=== PATIENT | female | born 1995 | race Caucasian/White ===

== ENCOUNTER 2017-03-16 00:36 | Emergency (ER) | payer OTHER ==
[~2017-03-16] VITALS: Ht 172.7 cm; Wt 58.3 kg
[2017-03-16 00:50] VITALS: TEMP 36.7; Ht 172.7 cm; Wt 58.3 kg
[2017-03-16] MEDS ORDERED: NAPROXEN 250 MG TAB PO STA (00:58)
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
[2017-03-16 02:08] VITALS: BP 111/66; PULSE 59; O2SAT 98
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
[2017-05-16] MEDS ORDERED: ULT50X PO ×2 (12:29→17:15)
[2017-05-16] MEDS ORDERED: OXYC7.5T62 PO ×2 (16:23→17:15)
[2017-05-16] MEDS ORDERED: LDDP5 TD ×2 (16:23→17:15)
== END 2017-03-16 02:13 | disposition home or self-care (01) ==
LOC: C.EDB 00:37 → C.EDA 02:13
DX: S09.90XA Unspecified injury of head, initial encounter (principal); S00.83XA Contusion of other part of head, initial encounter; S89.92XA Unspecified injury of left lower leg, initial encounter; X58.XXXA Exposure to other specified factors, initial encounter; Y93.72 Activity, wrestling; I73.00 Raynaud's syndrome without gangrene; F17.200 Nicotine dependence, unspecified, uncomplicated; Z88.0 Allergy status to penicillin; Z88.1 Allergy status to other antibiotic agents; Z88.2 Allergy status to sulfonamides; Z88.8 Allergy status to other drugs, medicaments and biological substances; Z80.41 Family history of malignant neoplasm of ovary

== ENCOUNTER 2017-04-27 15:56 | Emergency (ER) | payer OTHER ==
[~2017-04-27] VITALS: Ht 172.7 cm; Wt 58.8 kg
[2017-04-27 16:05] VITALS: TEMP 36.7; Ht 172.7 cm; Wt 58.8 kg
[2017-04-27] MEDS ORDERED: SODIUM CHLORIDE 0.9% 500ML 500 ML IV STA (16:47)
[2017-04-27 17:00] LABS: BASO % 0.4 %; BASO ABS # 0.04 K/uL (0-0.2); COMPLETE YES; EOS % 1.6 %; HEMATOCRIT 43.8 % (37-47); IG% 0.2 %; LYMPH % 17.2 %; MEAN CELL VOLUME 94.2 fL (80-100); MEAN CORPUSCULAR HEMOGLOBIN 32.3 pg (25-34); MEAN CORPUSCULAR HGB CONC 34.2 g/dl (32-36); MEAN PLATELET VOLUME 10.6 fL (7.4-10.4); MONO % 8.3 %; NEUT % 72.3 %; PLATELET COUNT 236 K/uL (130-400); RED BLOOD COUNT 4.65 M/uL (4.2-5.4); WHITE BLOOD COUNT 9.89 K/uL (4.8-10.8)
[2017-04-27 17:08] LABS: URINE APPEARANCE TURBID (CLEAR); URINE BILIRUBIN NEG (NEG); URINE COLOR YELLOW; URINE EPITHELIAL CELL AUTO >30 /lpf (0-5); URINE NITRITE NEG (NEG); URINE PH 7.5 (4.5-7.5); URINE SPECIFIC GRAVITY 1.024 (1.000-1.030); UROBILINOGEN NEG (NEG)
[2017-04-27 17:10] LABS: MANUAL MICROSCOPIC REQUIRED? NO; REVIEW REQ? NO
[2017-04-27] MEDS ORDERED: ONDANSETRON 8 MG/54 ML D5W IV STA (17:23)
[2017-04-27 17:24] LABS: ALT/SGPT 14 U/L (12-78); BLOOD UREA NITROGEN 11 mg/dl (7-18); BUN/CREATININE RATIO 13.5 (10-20); CALCIUM 8.9 mg/dl (8.5-10.1); CARBON DIOXIDE 25 mmol/L (21-32); CHLORIDE 106 mmol/L (98-107); CREATININE 0.79 mg/dl (0.60-1.20); GLUCOSE 80 mg/dl (70-99); POTASSIUM 3.5 mmol/L (3.5-5.1); SODIUM 141 mmol/L (136-145)
[2017-04-27 17:27] LABS: ALKALINE PHOSPHATASE 55 U/L (45-117); AST/SGOT 9 U/L (15-37)
[2017-04-27] MEDS ORDERED: KETOROLAC TROMETHAMINE 30 MG/ML VIAL IV STA (18:32)
--- NOTE | 2017-04-27 19:35 | DIAGNOSTIC IMAGING REPORT ---
ULTRASOUND OF THE PELVIS CLINICAL HISTORY: Right pelvic pain. COMPARISON STUDY: Pelvic ultrasound dated 06/08/2016. Pelvic CT dated 06/09/2016. TECHNIQUE: Real-time, grayscale, and color flow sonography of the pelvis is performed transabdominally. Images are reviewed in the transverse and longitudinal planes. The patient declined the endovaginal examination. FINDINGS: Uterus: The uterus is normal in size and echotexture, measuring 8.2 x 2.9 x 4.8 cm. Endometrium: The endometrium is normal in appearance, and the endometrial stripe is top normal in thickness measuring up to 1.2 cm. Ovaries: The ovaries are normal in size and morphology. The right ovary measures 2.2 x 2.1 x 1.9 cm and the left ovary measures 3.3 x 1.7 x 2.0 cm. Small follicles are noted bilaterally. Normal Doppler waveforms are shown within both ovaries. Pelvis: There is trace free fluid in the cul-de-sac. No concerning adnexal lesion is seen. IMPRESSION: 1. No acute sonographic abnormality is identified in the pelvis. 2. There is trace and likely physiologic free fluid in the cul-de-sac. Electronically signed by: Rakan Felipe M.D. 04/27/2017 7:34 PM Dictated Date/Time: 04/27/2017 7:32 PM
[2017-04-27] MEDS ORDERED: MoRPHine SULFATE 4 MG/ML 1 ML CARP\\VIAL IV STA ×2 (20:00→22:14)
--- NOTE | 2017-04-27 20:24 | EMERGENCY ROOM VISIT NOTE ---
ED Visit Note First contact with patient: 16:35 CHIEF COMPLAINT: Lower abdominal pain, pelvic pain HISTORY OF PRESENT ILLNESS: This 21-year-old female patient presents to the emergency department with her boyfriend, complaining of one-week long history of right-sided lower abdominal and pelvic pain. Patient states pain is located "where I would get period cramps." She notes feeling as if she needs to have a bowel movement. Patient states pain has been sharp and intermittent, lasting approximately 20 minutes. She states today, the pain became more constant in nature, not unbearable, however much more frequently than previously. Patient has been moving her bowels normally. Last bowel movement was this morning, approximately 9:15. Patient states his bowel movement was normal, soft, and she denies blood in the stool. She does report a small amount of blood from her vagina on the toilet paper when she wiped, but states her last period was last week. Patient states she did vomit this morning due to pain. She states vomiting was not associated with nausea prior. Patient denies fever, nausea, diarrhea, constipation, any upper abdominal pain, change in appetite. Until today, patient has been taking ibuprofen regularly for the discomfort. This did not help, so has not taken any medications today. Patient is sexually active with one partner, but denies the likelihood that she is . She is not taking control. Patient does report history of right ovarian cyst , diagnosed approximately 2 months ago in the emergency department in [place]. REVIEW OF SYSTEMS: A 10-system review of systems was performed with positives and pertinent negatives listed in the history of present illness. All other systems were reviewed and are negative. ALLERGIES: Amoxicillin, prednisone, Augmentin, ciprofloxacin, penicillin MEDICATIONS: None PMH: Ovarian cyst SOCIAL HISTORY: Patient lives locally with her father. Patient is a current smoker. She denies alcohol or drug use. PHYSICAL EXAM: VITALS: Vitals are noted on the nurse's note and reviewed by myself. Vital signs stable. GENERAL: 21-year-old female, in no acute distress, nondiaphoretic, well- developed well-nourished. HEAD - NC/AT. EYES - PERRL with EOMI bilaterally. Sclera anicteric. Palpebral conjunctiva pink and moist with no injection noted. EARS - No deformities of external structures noted on gross examination bilaterally. No pain elicited with palpation of the tragus bilaterally. External auditory canals without discharge or otorrhea. Tympanic membranes pearly fink without retraction or bulging. No fluid or purulent material visualized behind the TM. Handle of malleus, umbo, cone of light, pars tensa/ flaccid all easily visualized. NOSE - Midline and without cyanosis. No epistaxis or purulent drainage noted. Septum midline without deviation or septal hematoma noted. MOUTH/OROPHARYNX - Without perioral cyanosis. Buccal mucosa pink and moist and without leukoplakia. Tongue midline with equal elevation of palate bilaterally. No tonsillar hypertrophy, erythema, or exudates noted. Good dentition noted. NECK - Neck with FROM. Supple to palpation. No nuchal rigidity. LUNGS - Chest wall symmetric without accessory muscle use, intercostals retractions, or central cyanosis. Normal vesicular breath sounds CTA B/L. No wheezes, rales, or rhonchi appreciated. CARDIAC - RRR with S1/S2. No murmur, rubs, or gallops appreciated. ABDOMEN - Abdominal contour normal without pulsations or visible masses. Negative [place]'s or Gore Sims's Signs. BS are normoactive all four quadrants. tenderness to palpation appreciated in the right lower quadrant. No guarding. Positive Rebound Tenderness. Positive Rovsing's. Negative Benites 's. No palpable masses, hepatosplenomegaly, or ascites noted. EXTREMITIES - No clubbing or peripheral cyanosis. No pretibial edema present. +3/5 radial and dorsalis pedis pulses palpated throughout. +5/5 strength noted in UE/LE bilaterally. NEUROLOGIC - Cranial nerves II through XII grossly intact. Sensory intact to light touch throughout. PSYCH - A&Ox3 and cooperates fully with examiner. Pt is very pleasant and interacts well with examiner. RADIOLOGY: Pelvic/Transvaginal Ultrasound FINDINGS: Uterus: The uterus is normal in size and echotexture, measuring 8.2 x 2.9 x 4.8 cm. Endometrium: The endometrium is normal in appearance, and the endometrial stripe is top normal in thickness measuring up to 1.2 cm. Ovaries: The ovaries are normal in size and morphology. The right ovary measures 2.2 x 2.1 x 1.9 cm and the left ovary measures 3.3 x 1.7 x 2.0 cm. Small follicles are noted bilaterally. Normal Doppler waveforms are shown within both ovaries. Pelvis: There is trace free fluid in the cul-de-sac. No concerning adnexal lesion is seen. IMPRESSION: 1. No acute sonographic abnormality is identified in the pelvis. 2. There is trace and likely physiologic free fluid in the cul-de-sac. CT Abdomen/Pelvis with IV and Oral Contrast, read by radiology: FINDINGS: Lung bases: The heart is normal in size and without pericardial effusion. The lung bases are clear. Liver: The contrast-enhanced liver is normal in size, contour, and attenuation. There is no intrahepatic biliary ductal dilatation. The hepatic veins and portal veins are patent. Hepatic periportal edema is noted and likely related to hydration status. Gallbladder: There is unchanged abnormal appearance of the gallbladder. The gallbladder is not distended. Gallbladder wall thickening is noted and there are numerous small calcifications identified either within or adjacent to the gallbladder wall. No surrounding inflammatory stranding is seen. Spleen: Normal in size and attenuation. Pancreas: Unremarkable. Adrenal glands: Unremarkable. Kidneys: The contrast enhanced kidneys are normal in size and without hydronephrosis. The kidneys enhance symmetrically. There is a nonobstructing left renal calculus. Abdominal vasculature: The abdominal aorta is normal in course and caliber. Bowel: The small bowel and colon are normal in course and caliber. Mild to moderate colonic fecal retention is observed. The appendix is well-visualized and normal. Peritoneum: There is no intraperitoneal free air or abdominal ascites. There is a small fat-containing umbilical hernia. Lymphadenopathy: None. Pelvic viscera: The bladder, uterus, and adnexa are normal as visualized. There are bilateral ovarian follicles. Pelvic phleboliths are similar to previous. Skeletal structures: No lytic or blastic lesions are seen. Discussed findings of labs, ultrasound, CT scan with Dr. Matias. Dr. Matias agrees with discharge with outpatient follow-up at this time. I discussed with the patient her abnormal gallbladder findings on CT scan, and recommended she follow up with her primary care provider within one week regarding further evaluation and workup. Patient was discharged home in good condition. IMPRESSION: 1. The appendix is well-visualized and normal. 2. There is unchanged abnormal appearance of the gallbladder as compared to 06/09/2016. There is gallbladder wall thickening with numerous small round calcifications either within the gallbladder wall or adjacent to the gallbladder. These are extraluminal, and differential considerations include (but are not limited to) chronic cholecystitis, an atypical presentation of adenomyomatosis, or possibly the sequelae of previous granulomatous disease. There is no significant surrounding inflammatory change. Clinical and laboratory correlation will be required. 3. Small nonobstructing left renal calculus. EMERGENCY DEPARTMENT COURSE: Pt. was seen and evaluated as above. Initial lab work ordered and performed. Negative urinalysis, negative urine test, normal CBC with no leukocytosis noted, normal renal function, liver function, lipase normal at 138. Due to patient's previous recent ovarian cyst, initial pelvic ultrasound was ordered for evaluation. Results interpreted by radiologist and as previously documented. No current ovarian cyst, however radiology did note free fluid in the right lower pelvis. Patient request for medication for nausea. She was given 8 mg Zofran IV at this time with improvement in symptoms. Later, patient requested pain medication. Provided patient with 30 mg Toradol IV with only minimal improvement in abdominal pain. Provided patient with morphine 4 mg at this time. Pt. does report improvement in pain. After 2 hours, and just prior to CT scan, patient requested more pain medication , as she felt the morphine was wearing off. Pt. given 4mg morphine again with significant improvement in symptoms. Due to negative pelvic ultrasound, and ongoing abdominal discomfort, CT scan ordered and performed to r/o appendicitis or other cause of abdominal pain. CT scan performed with results as previously documented. Reviewed pt's previous history and records with Dr. Matias. Noted extremely similar circumstances last June,. I discussed this with the patient and asked if she has followed up outpatient for her symptoms. She states she has not. I discussed normal results of work-up with patient and recommended discharge at this time with nausea medication. Pt. agrees with this plan, so I encouraged her to follow-up outpatient. I suspect discomfort could be coming from ruptured ovarian cyst, however, difficult to tell based on symptoms and work-up performed. Pt. discharged home in good condition. DIAGNOSIS: Right lower quadrant pain, gallbladder wall thickening with calcifications. DIFFERENTIAL DIAGNOSIS: Ovarian cyst, ovarian torsion, appendicitis, bowel obstruction, acute cholecystitis, acute pancreatitis, acute gastroenteritis, PID , , malignancy, urinary tract infection, and others. DISCHARGE INSTRUCTIONS & TREATMENT: You have been treated in the Emergency Department your Abdominal Pain. Laboratory results and imaging studies have ruled out any emergent causes for your abdominal pain which would warrant admission or surgery. I suspect the pain may have been caused by a ruptured ovarian cyst. If you continue to experience discomfort in her pelvis, you should consider follow-up with a trophy assembler. You have been given morphine in the emergency department for your pain. It is illegal for you to drive while taking this medication. You have been prescribed Zofran to be used for any nausea or vomiting. Take as prescribed. For pain control, you can use the following [id number] medicines (if >12 yo): - Regular strength (325mg/tab) Tylenol (acetaminophen) 2 tabs every 4-6 hours as needed. Do not exceed 12 tablets in a 24 hour period. Avoid taking more than 4 grams (4000 mg) of Tylenol per day. This includes any other sources of acetaminophen you may take on a regular basis. - Regular strength (200 mg/tab) Advil (ibuprofen) 1-2 tabs every 4-6 hours as needed. Do not exceed a dose of 3200 mg per day. Drink plenty of water and stay well hydrated. As with any trip to the Emergency Department, you should follow-up with your Primary Care Provider from today's visit in 1-3 days. Noted gallbladder wall thickening and multiple small round calcifications within or adjacent to the bladder. These findings are unchanged from your previous CT scan completed June 2016. Consider follow-up with general surgery or GI regarding abnormalities noted in Gallbladder on CT scan. Return to the emergency department if your symptoms persist despite treatment plan outlined above or if the following symptoms occur: increased fevers, chills , worsening nausea/vomiting, blood in your stool or urine. Current/Historical Medications Scheduled Ondansetron Odt (Zofran Odt), 8 MG SL Q6H Allergies Coded Allergies: Prednisone (Verified Allergy, Severe, HIVES, 04/27/17) Amoxicillin (Verified Allergy, Intermediate, hives, 04/27/17) Penicillins (Verified Allergy, Intermediate, HIVES, 04/27/17) Ciprofloxacin (Verified Allergy, Unknown, unsure had a reaction as an infant, 04/27/17) Clavulanic Acid (Verified Allergy, Unknown, Hives/Rash, 04/27/17) Vital Signs Date Time Temp Pulse Resp B/P (MAP) Pulse Ox O2 Delivery O2 Flow Rate FiO2 04/27/17 23:38 58 18 107/58 97 04/27/17 22:29 61 18 92/59 95 Room Air 04/27/17 20:50 60 18 103/62 98 Room Air 04/27/17 18:42 72 18 99/58 99 Room Air 04/27/17 16:05 36.7 97 18 125/85 98 Room Air Laboratory Results 04/27/17 16:30 Red Blood Count 4.65, Mean Corpuscular Volume 94.2, Mean Corpuscular Hemoglobin 32.3, Mean Corpuscular Hemoglobin Concent 34.2, Mean Platelet Volume 10.6, Neutrophils (%) (Auto) 72.3, Lymphocytes (%) (Auto) 17.2, Monocytes (%) (Auto) 8.3, Eosinophils (%) (Auto) 1.6, Basophils (%) (Auto) 0.4, Neutrophils # (Auto) 7.15, Lymphocytes # (Auto) 1.70, Monocytes # (Auto) 0.82, Eosinophils # (Auto) 0.16, Basophils # (Auto) 0.04 04/27/17 16:30 Test 04/27/17 16:15 04/27/17 16:30 Urine Color YELLOW Urine Appearance TURBID (CLEAR) Urine pH 7.5 (4.5-7.5) Urine Specific [place] 1.024 (1.000-1.030) Urine Protein NEG (NEG) Urine Glucose (UA) NEG (NEG) Urine Ketones NEG (NEG) Urine Occult Blood NEG (NEG) Urine Nitrite NEG (NEG) Urine Bilirubin NEG (NEG) Urine Urobilinogen NEG (NEG) Urine Leukocyte Esterase NEG (NEG) Urine WBC (Auto) 1-5 /hpf (0-5) Urine RBC (Auto) 5-10 /hpf (0-4) Urine Hyaline Casts (Auto) 1-5 /lpf (0-5) Urine Epithelial Cells (Auto) >30 /lpf (0-5) Urine Bacteria (Auto) 1+ (NEG) Urine Test NEG (NEG) White Blood Count 9.89 K/uL (4.8-10.8) Red Blood Count 4.65 M/uL (4.2-5.4) Hemoglobin 15.0 g/dL (12.0-16.0) Hematocrit 43.8 % (37-47) Mean Corpuscular Volume 94.2 fL (80-100) Mean Corpuscular Hemoglobin 32.3 pg (25-34) Mean Corpuscular Hemoglobin Concent 34.2 g/dl (32-36) Platelet Count 236 K/uL (130-400) Mean Platelet Volume 10.6 fL (7.4-10.4) Neutrophils (%) (Auto) 72.3 % Lymphocytes (%) (Auto) 17.2 % Monocytes (%) (Auto) 8.3 % Eosinophils (%) (Auto) 1.6 % Basophils (%) (Auto) 0.4 % Neutrophils # (Auto) 7.15 K/uL (1.4-6.5) Lymphocytes # (Auto) 1.70 K/uL (1.2-3.4) Monocytes # (Auto) 0.82 K/uL (0.11-0.59) Eosinophils # (Auto) 0.16 K/uL (0-0.5) Basophils # (Auto) 0.04 K/uL (0-0.2) RDW Standard Deviation 44.6 fL (36.4-46.3) RDW Coefficient of Variation 13.1 % (11.5-14.5) Immature Granulocyte % (Auto) 0.2 % Immature Granulocyte # (Auto) 0.02 K/uL (0.00-0.02) Anion Gap 10.0 mmol/L (3-11) Est Creatinine Clear Calc Drug Dose 106.3 ml/min Estimated GFR () 125.8 Estimated GFR (Non- 108.5 BUN/Creatinine Ratio 13.5 (10-20) Calcium Level 8.9 mg/dl (8.5-10.1) Total Bilirubin 0.3 mg/dl (0.2-1) Direct Bilirubin < 0.1 mg/dl (0-0.2) Aspartate Amino Transf (AST/SGOT) 9 U/L (15-37) Alanine Aminotransferase (ALT/SGPT) 14 U/L (12-78) Alkaline Phosphatase 55 U/L (45-117) Total Protein 7.5 gm/dl (6.4-8.2) Albumin 3.9 gm/dl (3.4-5.0) Lipase 138 U/L (73-393) Medications Administered Medications (Trade) Dose Ordered Sig/Get Route Start Time Stop Time Status Last Admin Dose Admin Sodium Chloride 500 ml @ 999 mls/hr Q31M STAT IV 04/27/17 16:47 04/27/17 17:17 DC 04/27/17 17:15 999 MLS/HR Ondansetron HCl (Zofran 8mg Iv) 8 mg NOW STAT IV 04/27/17 17:23 04/27/17 17:24 DC 04/27/17 17:42 8 MG Ketorolac Tromethamine (Toradol Inj) 30 mg NOW STAT IV 04/27/17 18:32 04/27/17 18:33 DC 04/27/17 18:40 30 MG Morphine Sulfate (MoRPHine SULFATE INJ) 4 mg NOW STAT IV 04/27/17 20:00 04/27/17 20:01 DC 04/27/17 20:07 4 MG Morphine Sulfate (MoRPHine SULFATE INJ) 4 mg NOW STAT IV 04/27/17 22:14 04/27/17 22:16 DC 04/27/17 22:22 4 MG Ondansetron HCl (Zofran Inj) 4 mg NOW STAT IV 04/27/17 22:14 04/27/17 22:16 DC 04/27/17 22:22 4 MG Departure Information Impression Primary Impression: Right lower quadrant abdominal pain Dispostion Home / Self-Care Condition GOOD Prescriptions Ondansetron Odt (ZOFRAN ODT) 8 Mg Tab 8 MG SL Q6H for 5 Days, #20 TAB Prov: Marva Roger PA-C 04/27/17 Referrals Sotero Bob PA-C (PCP) Patient Instructions Abdominal Pain - [facility], [facility] Additional Instructions You have been treated in the Emergency Department your Abdominal Pain. Laboratory results and imaging studies have ruled out any emergent causes for your abdominal pain which would warrant admission or surgery. I suspect the pain may have been caused by a ruptured ovarian cyst. If you continue to experience discomfort in her pelvis, you should consider follow-up with a trophy assembler. You have been given morphine in the emergency department for your pain. It is illegal for you to drive while taking this medication. You have been prescribed Zofran to be used for any nausea or vomiting. Take as prescribed. For pain control, you can use the following [id number] medicines (if >12 yo): - Regular strength (325mg/tab) Tylenol (acetaminophen) 2 tabs every 4-6 hours as needed. Do not exceed 12 tablets in a 24 hour period. Avoid taking more than 4 grams (4000 mg) of Tylenol per day. This includes any other sources of acetaminophen you may take on a regular basis. - Regular strength (200 mg/tab) Advil (ibuprofen) 1-2 tabs every 4-6 hours as needed. Do not exceed a dose of 3200 mg per day. Drink plenty of water and stay well hydrated. As with any trip to the Emergency Department, you should follow-up with your Primary Care Provider from today's visit in 1-3 days. Noted gallbladder wall thickening and multiple small round calcifications within or adjacent to the bladder. These findings are unchanged from your previous CT scan completed June 2016. Consider follow-up with general surgery or GI regarding abnormalities noted in Gallbladder on CT scan. Return to the emergency department if your symptoms persist despite treatment plan outlined above or if the following symptoms occur: increased fevers, chills , worsening nausea/vomiting, blood in your stool or urine. Work Instructions Return To Work: 2 days
[2017-04-27] MEDS ORDERED: ONDANSETRON INJ 2 MG/ML 2 ML VIAL IV STA (22:14)
[2017-04-27] MEDS ORDERED: OPTIRAY 320 IV PRN (22:45)
--- NOTE | 2017-04-27 22:53 | DIAGNOSTIC IMAGING REPORT ---
CT SCAN OF THE ABDOMEN AND PELVIS WITH IV CONTRAST CLINICAL HISTORY: Right lower quadrant abdominal pain. COMPARISON STUDY: Pelvic ultrasound dated 04/27/2017. Abdominal CT dated 06/09/2016. TECHNIQUE: Following the IV administration of 116 cc of Optiray 320, CT scan of the abdomen and pelvis is performed from the lung bases to the proximal femora. Images are reviewed in the axial, sagittal, and coronal planes. IV contrast was administered without complication. Automated dose control exposure was utilized. CT DOSE: 279.19 mGy.cm FINDINGS: Lung bases: The heart is normal in size and without pericardial effusion. The lung bases are clear. Liver: The contrast-enhanced liver is normal in size, contour, and attenuation. There is no intrahepatic biliary ductal dilatation. The hepatic veins and portal veins are patent. Hepatic periportal edema is noted and likely related to hydration status. Gallbladder: There is unchanged abnormal appearance of the gallbladder. The gallbladder is not distended. Gallbladder wall thickening is noted and there are numerous small calcifications identified either within or adjacent to the gallbladder wall. No surrounding inflammatory stranding is seen. Spleen: Normal in size and attenuation. Pancreas: Unremarkable. Adrenal glands: Unremarkable. Kidneys: The contrast enhanced kidneys are normal in size and without hydronephrosis. The kidneys enhance symmetrically. There is a nonobstructing left renal calculus. Abdominal vasculature: The abdominal aorta is normal in course and caliber. Bowel: The small bowel and colon are normal in course and caliber. Mild to moderate colonic fecal retention is observed. The appendix is well-visualized and normal. Peritoneum: There is no intraperitoneal free air or abdominal ascites. There is a small fat-containing umbilical hernia. Lymphadenopathy: None. Pelvic viscera: The bladder, uterus, and adnexa are normal as visualized. There are bilateral ovarian follicles. Pelvic phleboliths are similar to previous. Skeletal structures: No lytic or blastic lesions are seen. IMPRESSION: 1. The appendix is well-visualized and normal. 2. There is unchanged abnormal appearance of the gallbladder as compared to 06/09/2016. There is gallbladder wall thickening with numerous small round calcifications either within the gallbladder wall or adjacent to the gallbladder. These are extraluminal, and differential considerations include (but are not limited to) chronic cholecystitis, an atypical presentation of adenomyomatosis, or possibly the sequelae of previous granulomatous disease. There is no significant surrounding inflammatory change. Clinical and laboratory correlation will be required. 3. Small nonobstructing left renal calculus. Electronically signed by: Rakan Felipe M.D. 04/27/2017 10:51 PM Dictated Date/Time: 04/27/2017 10:42 PM
[2017-04-27 23:38] VITALS: BP 107/58; PULSE 58; O2SAT 97
[2017-04-27] MEDS ORDERED: ONDA8TAB13 SL (23:45)
[2017-05-16] MEDS ORDERED: ULT50X PO ×2 (12:29→17:15)
[2017-05-16] MEDS ORDERED: LDDP5 TD ×2 (16:23→17:15)
[2017-05-16] MEDS ORDERED: OXYC7.5T62 PO ×2 (16:23→17:15)
== END 2017-04-27 23:39 | disposition home or self-care (01) ==
LOC: C.EDB 15:57 → C.EDC 23:39
DX: R10.31 Right lower quadrant pain (principal); F17.210 Nicotine dependence, cigarettes, uncomplicated

== ENCOUNTER 2017-05-11 16:45 | Inpatient (IN) | payer OTHER ==
[~2017-05-11] VITALS: Ht 172.7 cm; Wt 59.1 kg
[2017-05-11] MEDS ORDERED: MoRPHine SULFATE 2 MG/ML CARP IV STA (17:09)
[2017-05-11] MEDS ORDERED: ONDANSETRON INJ 2 MG/ML 2 ML VIAL IV STA (17:09)
[2017-05-11] MEDS ORDERED: SODIUM CHLORIDE 0.9% 1000ML 1,000 ML IV STA (17:09)
--- NOTE | 2017-05-11 17:32 | EMERGENCY ROOM VISIT NOTE ---
History First contact with patient: 16:58 Chief Complaint: ABDOMINAL PAIN Stated Complaint: PAIN IN RT SIDE BACK UP TO SHOULDER, WHOLE ABDOMEN Nursing Triage Summary: patient was told she had an abnormal ct scan when she was here a week ago. was told to follow up with surgeon patient went to pcp and was told to come here for evaluation History of Present Illness The patient is a 21 year old female who presents to the Emergency Room with complaints of abdominal pain. The patient was seen here a few weeks ago with abdominal pain. She did undergo CT imaging an ultrasound of the gallbladder. This revealed gallbladder wall thickening which could represent chronic cholecystitis, atypical presentation of addendum myomatosis or previous granulomatous disease. The patient followed up with her family doctor and is currently awaiting an appointment with Gen. surgery. She states that the pain has worsened and has become constant. The pain had been intermittent in the past. She rates her discomfort a 9/10. The pain is in the right upper quadrant and radiates to the right shoulder. She also has had some lower abdominal pain, on the left side. She reports nausea. She is taking NSAIDs without improvement. She denies any fevers. She denies any pain in her chest or trouble breathing. She denies any diarrhea. She does have a history of Raynaud's. Review of Systems A 10 system review of systems was completed with positives and pertinent negatives listed in the HPI. Past Medical/Surgical History Medical Problems: (1) Abdominal pain (2) Raynauds syndrome Family History FH: ovarian cancer Social History Smoking Status: Current Every Day Smoker Alcohol Use: none Marital Status: single Housing Status: lives with family Occupation Status: employed Current/Historical Medications No Active Prescriptions or Reported Meds Allergies Coded Allergies: Prednisone (Verified Allergy, Severe, HIVES, 05/11/17) Amoxicillin (Verified Allergy, Intermediate, hives, 05/11/17) Penicillins (Verified Allergy, Intermediate, HIVES, 05/11/17) Ciprofloxacin (Verified Allergy, Unknown, unsure had a reaction as an , 05/11/17) Clavulanic Acid (Verified Allergy, Unknown, Hives/Rash, 05/11/17) Physical Exam Vital Signs Date Time Temp Pulse Resp B/P (MAP) Pulse Ox O2 Delivery O2 Flow Rate FiO2 05/11/17 18:34 53 16 106/60 97 Room Air 05/11/17 16:55 36.6 80 18 109/78 97 Room Air Physical Exam VITALS: Vitals are noted on the nurse's note and reviewed by myself. Vital signs stable. The patient is afebrile. GENERAL: This is a 21-year-old female, in no acute distress, nondiaphoretic, well-developed well-nourished. SKIN: The skin was without rashes, erythema, edema, or bruising. There is no tenting of the skin. Capillary reflex less than 2 seconds. HEAD: Normocephalic atraumatic. EARS: External ears normal in appearance. EYES: Pupils equal round and reactive to light and accommodation. Conjunctivae without injection, sclerae without icterus. Extraocular movements intact. NOSE: Patent, turbinates without inflammation or discharge. MOUTH: Mucous membranes moist. Tonsils are not enlarged. Pharynx without erythema or exudate. Uvula midline. Airway patent. Tongue does not deviate. NECK: Supple without nuchal rigidity. No lymphadenopathy. No thyromegaly. Cervical spine is nontender. No JVD. HEART: Regular rate and rhythm without murmurs gallops or rubs. LUNGS: Clear to auscultation bilaterally without wheezes, rales or rhonchi. No retractions or accessory muscle use. ABDOMEN: Positive bowel sounds x 4. Soft, moderate right upper quadrant tenderness masses or organomegaly. Benites sign positive. MUSCULOSKELETAL: No muscle atrophy, erythema, or edema noted. Full range of motion without joint tenderness in all extremities. Strength 5/5 throughout. NEURO: Patient was alert and oriented to person place and time. No focal neurological deficits. Medical Decision & Procedures ER Provider Diagnostic Interpretation: BILIARY ULTRASOUND CLINICAL HISTORY: Right upper quadrant abdominal pain COMPARISON STUDY: None FINDINGS: The pancreas appears sonographically normal. There is no ductal dilatation. The common bile duct measures 3 mm. The liver appears sonographically normal. There is no right-sided hydronephrosis. The gallbladder is somewhat contracted. No gallstones are identified. IMPRESSION: Normal study Laboratory Results 05/11/17 17:28 Red Blood Count 4.88, Mean Corpuscular Volume 92.8, Mean Corpuscular Hemoglobin 30.7, Mean Corpuscular Hemoglobin Concent 33.1, Mean Platelet Volume 10.3, Neutrophils (%) (Auto) 59.6, Lymphocytes (%) (Auto) 26.6, Monocytes (%) (Auto) 10.8, Eosinophils (%) (Auto) 2.5, Basophils (%) (Auto) 0.4, Neutrophils # (Auto ) 4.99, Lymphocytes # (Auto) 2.23, Monocytes # (Auto) 0.90, Eosinophils # (Auto ) 0.21, Basophils # (Auto) 0.03 05/11/17 17:28 Test 05/11/17 17:28 05/11/17 17:33 White Blood Count 8.37 K/uL (4.8-10.8) Red Blood Count 4.88 M/uL (4.2-5.4) Hemoglobin 15.0 g/dL (12.0-16.0) Hematocrit 45.3 % (37-47) Mean Corpuscular Volume 92.8 fL (80-100) Mean Corpuscular Hemoglobin 30.7 pg (25-34) Mean Corpuscular Hemoglobin Concent 33.1 g/dl (32-36) Platelet Count 256 K/uL (130-400) Mean Platelet Volume 10.3 fL (7.4-10.4) Neutrophils (%) (Auto) 59.6 % Lymphocytes (%) (Auto) 26.6 % Monocytes (%) (Auto) 10.8 % Eosinophils (%) (Auto) 2.5 % Basophils (%) (Auto) 0.4 % Neutrophils # (Auto) 4.99 K/uL (1.4-6.5) Lymphocytes # (Auto) 2.23 K/uL (1.2-3.4) Monocytes # (Auto) 0.90 K/uL (0.11-0.59) Eosinophils # (Auto) 0.21 K/uL (0-0.5) Basophils # (Auto) 0.03 K/uL (0-0.2) RDW Standard Deviation 43.4 fL (36.4-46.3) RDW Coefficient of Variation 12.8 % (11.5-14.5) Immature Granulocyte % (Auto) 0.1 % Immature Granulocyte # (Auto) 0.01 K/uL (0.00-0.02) Prothrombin Time 11.1 SECONDS (9.0-12.0) Prothromb Time International Ratio 1.0 (0.9-1.1) Anion Gap 7.0 mmol/L (3-11) Est Creatinine Clear Calc Drug Dose 134.0 ml/min Estimated GFR () > 150.0 Estimated GFR (Non- 130.0 BUN/Creatinine Ratio 12.5 (10-20) Lactic Acid Level 1.2 mmol/L (0.4-2.0) Calcium Level 8.9 mg/dl (8.5-10.1) Total Bilirubin 0.3 mg/dl (0.2-1) Aspartate Amino Transf (AST/SGOT) 6 U/L (15-37) Alanine Aminotransferase (ALT/SGPT) 16 U/L (12-78) Alkaline Phosphatase 59 U/L (45-117) Total Protein 7.6 gm/dl (6.4-8.2) Albumin 4.0 gm/dl (3.4-5.0) Globulin 3.6 gm/dl (2.5-4.0) Albumin/Globulin Ratio 1.1 (0.9-2) Amylase Level 34 U/L (25-115) Lipase 186 U/L (73-393) Urine Color YELLOW Urine Appearance CLEAR (CLEAR) Urine pH 8.5 (4.5-7.5) Urine Specific [place] 1.022 (1.000-1.030) Urine Protein NEG (NEG) Urine Glucose (UA) NEG (NEG) Urine Ketones NEG (NEG) Urine Occult Blood 3+ (NEG) Urine Nitrite NEG (NEG) Urine Bilirubin NEG (NEG) Urine Urobilinogen NEG (NEG) Urine Leukocyte Esterase NEG (NEG) Urine WBC (Auto) 1-5 /hpf (0-5) Urine RBC (Auto) >30 /hpf (0-4) Urine Hyaline Casts (Auto) 1-5 /lpf (0-5) Urine Epithelial Cells (Auto) 10-20 /lpf (0-5) Urine Bacteria (Auto) NEG (NEG) Urine Test NEG (NEG) Medications Administered Medications (Trade) Dose Ordered Sig/Get Route Start Time Stop Time Status Last Admin Dose Admin Sodium Chloride 1,000 ml @ 999 mls/hr Q1H1M STAT IV 05/11/17 17:09 05/11/17 18:09 DC 05/11/17 17:09 999 MLS/HR Ondansetron HCl (Zofran Inj) 4 mg NOW STAT IV 05/11/17 17:09 05/11/17 17:11 DC 7/6/17 17:34 4 MG Morphine Sulfate (MoRPHine SULFATE INJ) 2 mg NOW STAT IV 05/11/17 17:09 05/11/17 17:11 DC 05/11/17 17:35 2 MG Morphine Sulfate (MoRPHine SULFATE INJ) 4 mg NOW STAT IV 05/11/17 18:05 05/11/17 18:07 DC 05/11/17 18:32 4 MG Hydromorphone HCl (Dilaudid Inj) 0.5 mg NOW STAT IV 05/11/17 19:10 05/11/17 19:11 DC 05/11/17 19:25 0.5 MG Hydromorphone HCl (Dilaudid Inj) 0.5 mg Q3H PRN IV 05/11/17 20:45 05/25/17 20:44 05/11/17 21:11 0.5 MG ED Course The patient was seen and examined. The patient does not have a fever or leukocytosis. She does not have any significant electrolyte abnormalities. Lactic acid is 1.2. Lipase is not elevated. Urinalysis reveals hematuria. The patient does have her menses currently. Ultrasound reveals contracted gallbladder The patient was hydrated with normal saline She was given 4 mg IV Zofran She was given 2 mg IV morphine with no improvement in her pain She was given 4 mg IV morphine with only minimal improvement in her pain She was given 0.5 mg IV Dilaudid and still complained of moderate pain The patient has had abdominal pain that has been somewhat severe over the last 1 month. She was seen here toward the end of April and had an evaluation including CT imaging. This revealed an abnormal appearance of the gallbladder with gallbladder wall thickening. There was question of chronic cholecystitis versus atypical presentation of adenomyomatosis or previous granulomatous disease. The patient's pain has become constant and intolerable. She has seen her family doctor and is awaiting referral to general surgery. I discussed the case with Dr. Ayala. He recommends HIDA scan. It does not seem that there is no acute surgical emergency at this time. I discussed the findings and surgical consultation with the patient. She still complains of intolerable pain and states she is not able to function. She may benefit from further evaluation and management in the hospital. The case was discussed with the hospitalist service and they will evaluate the patient. The patient was also seen and examined by Dr. Aguila who agrees with the assessment and treatment plan. Medication Reconciliation: I attest that I have personally reviewed the patient' s current medication list. Blood pressure screening: The patient was found to have normal blood pressure on screening and does not require follow-up Medical Decision DIFFERENTIAL DIAGNOSIS: Hepatitis, cholecystitis, cholangitis, biliary colic, pancreatitis, pneumonia, subdiaphragmatic abscess, appendicitis, inguinal hernia , nephrolithiasis, inflammatory bowel disease, mesenteric adenitis, peptic ulcer disease, GERD, gastritis, pancreatitis, myocardial infarction, pericarditis, ruptured aortic aneurysm, appendicitis, gastroenteritis, bowel obstruction, splenic infarct, diverticulitis, mesenteric ischemia, metabolic, peritonitis, among others. Impression Primary Impression: Intractable abdominal pain Departure Information Dispostion Admitted as an inpatient Prescriptions No Active Prescriptions or Reported Meds Referrals Sotero Bob PA-C (PCP) Patient Instructions [facility]
[2017-05-11 17:59] LABS: BASO % 0.4 %; BASO ABS # 0.03 K/uL (0-0.2); COMPLETE YES; EOS % 2.5 %; HEMATOCRIT 45.3 % (37-47); IG% 0.1 %; LYMPH % 26.6 %; LYMPH ABS # 2.23 K/uL (1.2-3.4); MEAN CELL VOLUME 92.8 fL (80-100); MEAN CORPUSCULAR HEMOGLOBIN 30.7 pg (25-34); MEAN CORPUSCULAR HGB CONC 33.1 g/dl (32-36); MEAN PLATELET VOLUME 10.3 fL (7.4-10.4); MONO % 10.8 %; NEUT % 59.6 %; PLATELET COUNT 256 K/uL (130-400); RED BLOOD COUNT 4.88 M/uL (4.2-5.4); WHITE BLOOD COUNT 8.37 K/uL (4.8-10.8)
[2017-05-11] MEDS ORDERED: MoRPHine SULFATE 4 MG/ML 1 ML CARP\\VIAL IV STA (18:05)
[2017-05-11 18:17] LABS: URINE APPEARANCE CLEAR (CLEAR); URINE BILIRUBIN NEG (NEG); URINE COLOR YELLOW; URINE NITRITE NEG (NEG); URINE PH 8.5 (4.5-7.5); URINE SPECIFIC GRAVITY 1.022 (1.000-1.030); UROBILINOGEN NEG (NEG); ZZUR CULT IF INDIC CLEAN CATCH NO
[2017-05-11 18:24] LABS: ALT/SGPT 16 U/L (12-78); AMYLASE 34 U/L (25-115); AST/SGOT 6 U/L (15-37); BLOOD UREA NITROGEN 8 mg/dl (7-18); BUN/CREATININE RATIO 12.5 (10-20); CALCIUM 8.9 mg/dl (8.5-10.1); CARBON DIOXIDE 27 mmol/L (21-32); CHLORIDE 108 mmol/L (98-107); CREATININE 0.63 mg/dl (0.60-1.20); GLUCOSE 87 mg/dl (70-99); POTASSIUM 3.4 mmol/L (3.5-5.1); SODIUM 142 mmol/L (136-145)
[2017-05-11 18:26] LABS: ALB/GLOB RATIO 1.1 (0.9-2); ALKALINE PHOSPHATASE 59 U/L (45-117)
[2017-05-11 18:30] LABS: MANUAL MICROSCOPIC REQUIRED? NO; REVIEW REQ? NO; SULFASALICYLIC ACID NEG (NEG)
--- NOTE | 2017-05-11 18:35 | DIAGNOSTIC IMAGING REPORT ---
BILIARY ULTRASOUND CLINICAL HISTORY: Right upper quadrant abdominal pain COMPARISON STUDY: None FINDINGS: The pancreas appears sonographically normal. There is no ductal dilatation. The common bile duct measures 3 mm. The liver appears sonographically normal. There is no right-sided hydronephrosis. The gallbladder is somewhat contracted. No gallstones are identified. IMPRESSION: Normal study Electronically signed by: Aris Ramos M.D. 05/11/2017 6:34 PM Dictated Date/Time: 05/11/2017 6:33 PM
--- NOTE | 2017-05-11 19:08 | EMERGENCY ROOM VISIT NOTE ---
ED Visit Note First contact with patient: 16:58 This Patient was discussed with the physician carpenter assistant, Tanja Dawson PA-C. The pertinent historical and physical exam findings were confirmed. I agree with the studies ordered and with the interpretations of these studies. I agree with the disposition and care plan.
[2017-05-11] MEDS ORDERED: HYDROmorphone INJ 0.5 MG/0.5 ML SYR IV STA (19:10)
[2017-05-11] MEDS ORDERED: HEPARIN SOD 5000 UNIT/0.5 ML CARP SQ SCH (20:45)
[2017-05-11] MEDS ORDERED: ONDANSETRON INJ 2 MG/ML 2 ML VIAL IV PRN (20:45)
[2017-05-11] MEDS ORDERED: ALUMINUM/MAGNESIUM/SIMETH (MAALOX MAX) 30 ML UDC PO PRN (20:45)
[2017-05-11] MEDS ORDERED: MAGNESIUM HYDROXIDE SUSP 30 ML UDC PO PRN (20:45)
[2017-05-11] MEDS ORDERED: ZOLPIDEM TARTRATE 5 MG TAB PO PRN (20:45)
[2017-05-11] MEDS: HYDROmorphone INJ 0.5 MG/0.5 ML SYR IV PRN (21:11)
--- NOTE | 2017-05-11 21:21 | History and Physical ---
History & Physical Date & Time of Service: May 11, 2017 at 21:04 Chief Complaint: Pain In Rt Side Back Up To Shoulder, Whole Abdomen Primary Care Physician: Sotero Bob PA-C History of Present Illness Source: patient 21 y/o F who denies a past medical history. She has had progressive RUQ and generalized abdominal pain for 2-3 weeks. She is having difficulty eating due to pain associated with ingestion. She states that she had fevers 2 night prior. She denies vomiting or diarrhea. The pt was scheduled for an outpatient surgery consultation but states that her symptoms have become intolerable. An initial ultrasound revealed gall bladder contraction only. The surgery service was contacted and have stated that this is not a surgical issue. She will therefore be admitted for GI evaluation. Past Medical/Surgical History Denies a significant medical history Family History FH: ovarian cancer Both parents alive and well Social History Does not drink - Smokes 1/2 pack daily - recently graduated high school Smoking Status: Current Every Day Smoker Marital Status: single Occupational Status: employed Allergies Coded Allergies: Prednisone (Verified Allergy, Severe, HIVES, 05/11/17) Amoxicillin (Verified Allergy, Intermediate, hives, 05/11/17) Penicillins (Verified Allergy, Intermediate, HIVES, 05/11/17) Ciprofloxacin (Verified Allergy, Unknown, unsure had a reaction as an infant, 05/11/17) Clavulanic Acid (Verified Allergy, Unknown, Hives/Rash, 05/11/17) Home Medications No Active Prescriptions or Reported Meds Review of Systems Constitutional: + fever, No chills, No sweats Eyes: No worsening of vision ENT: No hearing loss, No unusual epistaxis, No nasal symptoms Respiratory: No cough, No sputum, No wheezing Cardiovascular: No chest pain, No orthopnea, No PND Abdomen: + pain, + nausea, No vomiting, No diarrhea Musculoskeletal: No joint pain, No muscle pain Genitourinary - Female: No dysuria, No urinary frequency, No urinary urgency Neurologic: No memory loss, No paralysis, No weakness Psychiatric: No depression symptoms Endocrine: No fatigue Hematologic / Lymphatic: No abnormal bleeding/bruising Integumentary: No rash Allergic / Immunologic: No environmental allergies Physical Exam Vital Signs Date Time Temp Pulse Resp B/P (MAP) Pulse Ox O2 Delivery O2 Flow Rate FiO2 05/11/17 18:34 53 16 106/60 97 Room Air 7/6/17 16:55 36.6 80 18 109/78 97 Room Air General Appearance: WD/WN, no apparent distress Head: normocephalic Eyes: normal inspection, EOMI ENT: normal ENT inspection, pharynx normal Neck: supple, no JVD Respiratory/Chest: chest non-tender, lungs clear, normal breath sounds, no respiratory distress, no accessory muscle use Cardiovascular: regular rate, rhythm, no edema, no gallop, no JVD, no murmur, normal peripheral pulses Abdomen/GI: normal bowel sounds, soft, + tenderness (diffuse - mild) Back: normal inspection, no CVA tenderness, no muscle spasm Extremities/Musculoskelatal: normal inspection, no calf tenderness, normal capillary refill, no pedal edema, normal range of motion 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, no motor/sensory deficits, alert, normal mood/affect, normal reflexes, oriented x 3 Skin: normal color, warm/dry, no rash Diagnostics Laboratory Results Results Past 24 Hours Test 05/11/17 17:28 05/11/17 17:33 Range/Units White Blood Count 8.37 4.8-10.8 K/uL Red Blood Count 4.88 4.2-5.4 M/uL Hemoglobin 15.0 12.0-16.0 g/dL Hematocrit 45.3 37-47 % Mean Corpuscular Volume 92.8 80-100 fL Mean Corpuscular Hemoglobin 30.7 25-34 pg Mean Corpuscular Hemoglobin Concent 33.1 32-36 g/dl Platelet Count 256 130-400 K/uL Mean Platelet Volume 10.3 7.4-10.4 fL Neutrophils (%) (Auto) 59.6 % Lymphocytes (%) (Auto) 26.6 % Monocytes (%) (Auto) 10.8 % Eosinophils (%) (Auto) 2.5 % Basophils (%) (Auto) 0.4 % Neutrophils # (Auto) 4.99 1.4-6.5 K/uL Lymphocytes # (Auto) 2.23 1.2-3.4 K/uL Monocytes # (Auto) 0.90 0.11-0.59 K/uL Eosinophils # (Auto) 0.21 0-0.5 K/uL Basophils # (Auto) 0.03 0-0.2 K/uL RDW Standard Deviation 43.4 36.4-46.3 fL RDW Coefficient of Variation 12.8 11.5-14.5 % Immature Granulocyte % (Auto) 0.1 % Immature Granulocyte # (Auto) 0.01 0.00-0.02 K/uL Sodium Level 142 136-145 mmol/L Potassium Level 3.4 3.5-5.1 mmol/L Chloride Level 108 98-107 mmol/L Carbon Dioxide Level 27 21-32 mmol/L Anion Gap 7.0 3-11 mmol/L Blood Urea Nitrogen 8 7-18 mg/dl Creatinine 0.63 0.60-1.20 mg/dl Est Creatinine Clear Calc Drug Dose 134.0 ml/min Estimated GFR () > 150.0 Estimated GFR (Non- 130.0 BUN/Creatinine Ratio 12.5 10-20 Random Glucose 87 70-99 mg/dl Lactic Acid Level 1.2 0.4-2.0 mmol/L Calcium Level 8.9 8.5-10.1 mg/dl Total Bilirubin 0.3 0.2-1 mg/dl Aspartate Amino Transf (AST/SGOT) 6 15-37 U/L Alanine Aminotransferase (ALT/SGPT) 16 12-78 U/L Alkaline Phosphatase 59 45-117 U/L Total Protein 7.6 6.4-8.2 gm/dl Albumin 4.0 3.4-5.0 gm/dl Globulin 3.6 2.5-4.0 gm/dl Albumin/Globulin Ratio 1.1 0.9-2 Amylase Level 34 25-115 U/L Lipase 186 73-393 U/L Urine Color YELLOW Urine Appearance CLEAR CLEAR Urine pH 8.5 4.5-7.5 Urine Specific [place] 1.022 1.000-1.030 Urine Protein NEG NEG Urine Glucose (UA) NEG NEG Urine Ketones NEG NEG Urine Occult Blood 3+ NEG Urine Nitrite NEG NEG Urine Bilirubin NEG NEG Urine Urobilinogen NEG NEG Urine Leukocyte Esterase NEG NEG Urine WBC (Auto) 1-5 0-5 /hpf Urine RBC (Auto) >30 0-4 /hpf Urine Hyaline Casts (Auto) 1-5 0-5 /lpf Urine Epithelial Cells (Auto) 10-20 0-5 /lpf Urine Bacteria (Auto) NEG NEG Urine Test NEG NEG Impression Assessment and Plan 21 y/o F who denies a past medical history. She has had progressive RUQ and generalized abdominal pain for 2-3 weeks. She is having difficulty eating due to pain associated with ingestion. She states that she had fevers 2 night prior. She denies vomiting or diarrhea. The pt was scheduled for an outpatient surgery consultation but states that her symptoms have become intolerable. An initial ultrasound revealed gall bladder contraction only. The surgery service was contacted and have stated that this is not a surgical issue. She will therefore be admitted for GI evaluation. The pt will be admitted for pain control and IVF - we will consult GI and order a HIDA scan - she will be kept NPO pending further evaluation Full code - Heparin prophylaxis Total time for this admit including review of labs, imaging - discussion with pt and ER attending - 27 min Level of Care Telemetry Resuscitation Status FULL RESUSCITATION VTE Prophylaxis VTE Risk Assessment Done? Y/N: Yes Risk Level: Low Given or contraindicated: Unfractionated heparin SQ
[2017-05-11 22:15] VITALS: BP 90/67; PULSE 53; TEMP 36.7; Ht 172.7 cm; Wt 59.1 kg
[2017-05-11] MEDS ORDERED: POLYETHYLENE (MIRALAX) 17 GM PACK PO PRN (22:15)
[2017-05-11 22:41] LABS: PROTHROMBIN TIME (PATIENT) 11.1 SECONDS (9.0-12.0)
[2017-05-11] MEDS: D5NSS + 20MEQ KCL 1,000 ML IV SCH (22:49)
[2017-05-11 23:22] VITALS: BP 104/50; PULSE 55; TEMP 36.6; O2SAT 97
[2017-05-12] MEDS: HYDROmorphone INJ 0.5 MG/0.5 ML SYR IV PRN ×6 (01:01→23:21)
[2017-05-12] MEDS: D5NSS + 20MEQ KCL 1,000 ML IV SCH ×2 (06:19→13:46)
[2017-05-12] MEDS: HEPARIN SOD 5000 UNIT/0.5 ML CARP SQ SCH ×3 (06:20→21:39)
[2017-05-12 07:38] VITALS: BP 81/51; PULSE 55; TEMP 36.6; O2SAT 96
--- NOTE | 2017-05-12 09:22 | DIAGNOSTIC IMAGING REPORT ---
HEPATOBILIARY HIDA IMAGING HISTORY: 21-year-old female presents with right upper quadrant pain. COMPARISON: Right upper quadrant ultrasound 05/11/2017. TECHNIQUE: Sequential anterior abdominal images were obtained through 60 minutes following the intravenous administration of 5.5 mCi of technetium-99m Choletec. FINDINGS: There is prompt, uniform accumulation of the tracer by the liver. There is normal filling of the intrahepatic ducts, common bile duct and normal excretion of the tracer into the duodenum. The gallbladder fills normally. There is no significant enterogastric reflux. IMPRESSION: Normal hepatobiliary study. No scintigraphic evidence for acute cholecystitis or common bile duct obstruction. Electronically signed by: Kulwant Sierra 05/12/2017 9:21 AM Dictated Date/Time: 05/12/2017 9:17 AM
[2017-05-12] MEDS: SUCRALFATE 1 GM/10 ML UDC PO SCH ×3 (12:15→20:25)
[2017-05-12 15:00] VITALS: BP 98/61; PULSE 49; TEMP 36.5; O2SAT 97
--- NOTE | 2017-05-12 17:37 | Progress Note ---
Subjective Date of Service: May 12, 2017. Subjective Pt evaluation today including: conversation w/ patient, conversation w/ family , chart review Pt with ongoing abd pain. Attempted trial of carafate pre-clears. She did have abd pain that was the same as her pain yesterday, but minimal nausea and no emesis. Pt states this started about 3 weeks ago as abd pain which progressed to n/v. She does tolerate some food, but definitely has intolerance to greasy/fried foods. "My diet isn't very good." States she started to have diarrhea about 2 weeks ago. At least 4 bowel movements per day that are loose. 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 No recent travel , no one else in the home is sick. She lives with her father. They have well water. He has not mentioned any issues to her, but he is not present to discuss. Pt has hx of headaches, but no GI concerns. No recent abx use, no camping or water sports. Pt has been working with her PCP and was to see surgery, however the referral was made to a surgeon not in their insurance plan, which has delayed care. In the meantime, she has had less tolerance to PO and worsening pain. She has been trying ibuprofen for her pain, but it does not help. She took immodium about 2 weeks ago x1, but not since. No other GI OTCs. She has no hx of seeing GI. Pt denies fever, SOB, chest pain, LE pain or swelling. Problem List Medical Problems: (1) Allergic reaction Status: Acute (2) Anxiety Status: Acute (3) Contusion of left orbit Status: Acute (4) Hyperventilation syndrome Status: Acute (5) Intractable abdominal pain Status: Acute (6) Left knee injury Status: Acute (7) Mild closed head injury Status: Acute (8) Right lower quadrant abdominal pain Status: Acute Review of Systems All Other Systems: Reviewed and Negative Objective Vital Signs Date Time Temp Pulse Resp B/P (MAP) Pulse Ox O2 Delivery O2 Flow Rate FiO2 05/12/17 15:40 Room Air 05/12/17 15:00 36.5 49 18 98/61 (73) 97 Room Air 05/12/17 07:38 36.6 55 16 81/51 (61) 96 Room Air 05/12/17 07:35 Room Air 05/11/17 23:45 Room Air 05/11/17 23:22 36.6 55 16 104/50 (68) 97 Room Air 05/11/17 22:15 36.7 53 14 90/67 Room Air 05/11/17 21:36 36.6 58 18 106/66 98 05/11/17 21:14 58 18 106/66 98 Room Air 05/11/17 18:34 53 16 106/60 97 Room Air Physical Exam General Appearance: WD/WN, no apparent distress Eyes: normal inspection, EOMI ENT: hearing grossly normal Neck: supple Respiratory/Chest: normal breath sounds, no respiratory distress Cardiovascular: regular rate, rhythm, no edema Abdomen: soft, + tenderness (diffuse, + Benites's) Extremities: non-tender, no pedal edema Neurologic/Psychiatric: alert, normal mood/affect, oriented x 3 Skin: normal color, warm/dry Laboratory Results Last 24 Hours Test 05/11/17 17:28 05/11/17 17:33 White Blood Count 8.37 K/uL Red Blood Count 4.88 M/uL Hemoglobin 15.0 g/dL Hematocrit 45.3 % Mean Corpuscular Volume 92.8 fL Mean Corpuscular Hemoglobin 30.7 pg Mean Corpuscular Hemoglobin Concent 33.1 g/dl Platelet Count 256 K/uL Mean Platelet Volume 10.3 fL Neutrophils (%) (Auto) 59.6 % Lymphocytes (%) (Auto) 26.6 % Monocytes (%) (Auto) 10.8 % Eosinophils (%) (Auto) 2.5 % Basophils (%) (Auto) 0.4 % Neutrophils # (Auto) 4.99 K/uL Lymphocytes # (Auto) 2.23 K/uL Monocytes # (Auto) 0.90 K/uL Eosinophils # (Auto) 0.21 K/uL Basophils # (Auto) 0.03 K/uL RDW Standard Deviation 43.4 fL RDW Coefficient of Variation 12.8 % Immature Granulocyte % (Auto) 0.1 % Immature Granulocyte # (Auto) 0.01 K/uL Prothrombin Time 11.1 SECONDS Prothromb Time International Ratio 1.0 Sodium Level 142 mmol/L Potassium Level 3.4 mmol/L Chloride Level 108 mmol/L Carbon Dioxide Level 27 mmol/L Anion Gap 7.0 mmol/L Blood Urea Nitrogen 8 mg/dl Creatinine 0.63 mg/dl Est Creatinine Clear Calc Drug Dose 134.0 ml/min Estimated GFR () > 150.0 Estimated GFR (Non- 130.0 BUN/Creatinine Ratio 12.5 Random Glucose 87 mg/dl Lactic Acid Level 1.2 mmol/L Calcium Level 8.9 mg/dl Total Bilirubin 0.3 mg/dl Aspartate Amino Transf (AST/SGOT) 6 U/L Alanine Aminotransferase (ALT/SGPT) 16 U/L Alkaline Phosphatase 59 U/L Total Protein 7.6 gm/dl Albumin 4.0 gm/dl Globulin 3.6 gm/dl Albumin/Globulin Ratio 1.1 Amylase Level 34 U/L Lipase 186 U/L Urine Color YELLOW Urine Appearance CLEAR Urine pH 8.5 Urine Specific [place] 1.022 Urine Protein NEG Urine Glucose (UA) NEG Urine Ketones NEG Urine Occult Blood 3+ Urine Nitrite NEG Urine Bilirubin NEG Urine Urobilinogen NEG Urine Leukocyte Esterase NEG Urine WBC (Auto) 1-5 /hpf Urine RBC (Auto) >30 /hpf Urine Hyaline Casts (Auto) 1-5 /lpf Urine Epithelial Cells (Auto) 10-20 /lpf Urine Bacteria (Auto) NEG Urine Test NEG Assessment and Plan 21 y/o F who denies a past medical history. She has had progressive RUQ and generalized abdominal pain for 2-3 weeks. She is having difficulty eating due to pain associated with ingestion. Abd pain: Uncertain etiology Sending stool for fungal, giardia, cdiff Attempted to order gastric emptying study, however can only be done on Wednesdays now per radiology Attempting carafate prior to PO to determine if this is upper GI GB US neg, HIDA neg CTAP and pelvic US on 04/27 neg Continue IVF CBC, PRP, UA, amylase, lipase, LFT neg Neg urine The surgery service was contacted by admitting physician and have stated that this is not a surgical issue. Heparin for DVT proph
[2017-05-12 23:38] VITALS: BP 95/61; PULSE 50; TEMP 36.6; O2SAT 97
[2017-05-13] MEDS: HYDROmorphone INJ 0.5 MG/0.5 ML SYR IV PRN ×7 (02:40→23:32)
[2017-05-13] MEDS: HEPARIN SOD 5000 UNIT/0.5 ML CARP SQ SCH ×3 (06:00→21:45)
[2017-05-13 07:56] VITALS: BP 88/54; PULSE 51; TEMP 36.6; O2SAT 97
[2017-05-13] MEDS: SUCRALFATE 1 GM/10 ML UDC PO SCH ×3 (08:21→17:03)
[2017-05-13 12:23] VITALS: BP 94/56; PULSE 78; TEMP 36.6; O2SAT 97
--- NOTE | 2017-05-13 13:19 | Progress Note ---
Subjective Date of Service: May 13, 2017. Subjective Pt evaluation today including: conversation w/ patient, conversation w/ family Pt states she did not have any emesis last night with ongoing clears. 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 She did have an episode of emesis this AM, but this was prior to PO intake. She has not had diarrhea since admission. No bowel movement at all, actually. She states the morphine wears off before the end of the 3 hour window but that it does help some. She would like to try crackers. Pt denies fever, SOB, chest pain, LE pain or swelling. Problem List Medical Problems: (1) Allergic reaction Status: Acute (2) Anxiety Status: Acute (3) Contusion of left orbit Status: Acute (4) Hyperventilation syndrome Status: Acute (5) Intractable abdominal pain Status: Acute (6) Left knee injury Status: Acute (7) Mild closed head injury Status: Acute (8) Right lower quadrant abdominal pain Status: Acute Review of Systems All Other Systems: Reviewed and Negative Objective Vital Signs Date Time Temp Pulse Resp B/P (MAP) Pulse Ox O2 Delivery O2 Flow Rate FiO2 05/13/17 12:23 36.6 78 16 94/56 (69) 97 Room Air 05/13/17 07:56 36.6 51 16 88/54 (65) 97 Room Air 05/13/17 07:45 Room Air 05/12/17 23:38 36.6 50 16 95/61 (72) 97 Room Air 05/12/17 23:15 Room Air 05/12/17 15:40 Room Air 05/12/17 15:00 36.5 49 18 98/61 (73) 97 Room Air Physical Exam General Appearance: WD/WN, no apparent distress Eyes: normal inspection, EOMI Respiratory/Chest: normal breath sounds, no respiratory distress Cardiovascular: regular rate, rhythm, no edema Abdomen: soft, + tenderness Extremities: non-tender, no pedal edema Neurologic/Psychiatric: alert, normal mood/affect Skin: normal color, warm/dry Assessment and Plan 21 y/o F who denies a past medical history. She has had progressive RUQ and generalized abdominal pain for 2-3 weeks. She is having difficulty eating due to pain associated with ingestion. Abd pain: Uncertain etiology Sending stool for fungal, giardia, cdiff Attempted to order gastric emptying study, however can only be done on Wednesdays now per radiology Cannot obtain upper GI series with small bowel follow through on the weekend Attempting carafate prior to PO to determine if this is upper GI, pt has had less emesis with this but ongoing pain and nausea GB US neg, HIDA neg CTAP and pelvic US on 04/27 neg Continue IVF CBC, PRP, UA, amylase, lipase, LFT neg Neg urine GI c/s pending The surgery service was contacted by admitting physician and have stated that this is not a surgical issue. Heparin for DVT proph
[2017-05-13 15:07] VITALS: BP 103/66; PULSE 73; TEMP 37.3; O2SAT 96
[2017-05-13] MEDS: ACETAMINOPHEN 325 MG TAB PO PRN (15:45)
--- NOTE | 2017-05-13 19:07 | Gastrointestinal Consultation ---
Gastrointestinal Consultation Date of Consultation: May 13, 2017 Attending Physician: Dr Krupa Simon Consulting Physician: Brandon Maxwell MD Reason for Consultation: abdominal pain, n/v History of Present Illness Patient is a 21 year old female with CC of abdominal pain. Mother with patient for H and P. HPI She states for last month and a half she has had migrating abdominal pain but can be diffuse, crampy in nature. This is associated with change in bowels from every other day to 3-4 times a day loose but no black nor bloody stools. Also with N/V. She presented to ER 04/27/[address] A/P thickened GB adenomyomatosis versus chronic cholecytitis vs granulomatous but no change from 06/2016.. She was admitted through ER 05/11/17 and biliary u/s negative and HIDA neg. LFTS, amylase, lipase, CBC normal. No stools when not eating. Abd pain and nausea controlled on medication but not improved otherwise. Low grade fever at home. No wt loss, dysphagia GERD. No GI appts in past and no EGD nor colo in the past. Denies ETOH use but is every day smoker. Past Medical/Surgical History Medical Problems: (1) Allergic reaction Status: Acute (2) Anxiety Status: Acute (3) Contusion of left orbit Status: Acute (4) Hyperventilation syndrome Status: Acute (5) Intractable abdominal pain Status: Acute (6) Left knee injury Status: Acute (7) Mild closed head injury Status: Acute (8) Right lower quadrant abdominal pain Status: Acute Family History Family history was reviewed; no changes noted. Social History Smoking Status: Current Every Day Smoker Alcohol Use: none Marital Status: single Housing Status: lives with family Occupation Status: employed Allergies Coded Allergies: Prednisone (Verified Allergy, Severe, HIVES, 05/11/17) Amoxicillin (Verified Allergy, Intermediate, hives, 05/11/17) Penicillins (Verified Allergy, Intermediate, HIVES, 05/11/17) Ciprofloxacin (Verified Allergy, Unknown, unsure had a reaction as an infant, 05/11/17) Clavulanic Acid (Verified Allergy, Unknown, Hives/Rash, 05/11/17) Current Medications Home Meds and Scripts Medications Dose Route/Sig Max Daily Dose Days Date Category No Active Prescriptions or Reported Medications Rx Review of Systems Constitutional: No see HPI, No fever, No chills, No sweats, No weight loss, No weakness, No fatigue, No problem reported Eyes: No see HPI, No worsening of vision, No eye pain, No redness, No discharge , No diplopia, No problem reported ENT: No see HPI, No hearing loss, No unusual epistaxis, No nasal symptoms, No sore throat, No tinnitus, No dental problems, No trouble swallowing, No pain on swallowing, No problem reported Respiratory: No see HPI, No cough, No sputum, No wheezing, No shortness of breath, No dyspnea on exertion, No dyspnea at rest, No hemoptysis, No problem reported Cardiac: No see HPI, No chest pain, No orthopnea, No PND, No edema, No claudication, No palpitations, No problem reported Musculoskeletal: No see HPI, No joint pain, No muscle pain, No swelling, No calf pain, No problem reported Female : No see HPI, No dysuria, No urinary frequency, No hematuria, No incontinence, No abnormal vaginal bleeding, No vaginal discharge, No problem reported Neuro: No see HPI, No memory loss, No paralysis, No weakness, No numbness/ tingling, No vertigo, No balance problems, No problem reported Psych: No see HPI, No depression symptoms, No anhedonism, No anxiety, No insomnia, No substance abuse, No problem reported Heme: No see HPI, No abnormal bleeding/bruising, No clotting problems, No swollen lymph nodes, No night sweats, No problem reported Endo: No see HPI, No fatigue, No excessive thirst, No excessive urination, No problem reported Skin: No see HPI, No rash, No itch, No new/changing skin lesions, No color change, No bleeding, No jaundice, No problem reported Physical Exam Date Time Temp Pulse Resp B/P (MAP) Pulse Ox O2 Delivery O2 Flow Rate FiO2 05/13/17 15:30 Room Air 05/13/17 15:07 37.3 73 18 103/66 (78) 96 Room Air 05/13/17 12:23 36.6 78 16 94/56 (69) 97 Room Air 05/13/17 07:56 36.6 51 16 88/54 (65) 97 Room Air 05/13/17 07:45 Room Air 05/12/17 23:38 36.6 50 16 95/61 (72) 97 Room Air 05/12/17 23:15 Room Air General Appearance: WD/WN, no apparent distress Eyes: normal inspection, PERRL ENT: hearing grossly normal, pharynx normal Neck: supple, no adenopathy Respiratory/Chest: lungs clear, no respiratory distress Cardiovascular: regular rate, rhythm, no edema, no murmur Abdomen: normal bowel sounds, non tender, soft, no organomegaly Extremities: normal range of motion, non-tender Neurologic/Psych: normal mood/affect, oriented x 3 Skin: normal color, warm/dry Impression Abd pain--migrating upper and lower---differential broad but PUD and inflammatory bowel disease in the differential. Recommend EGD and colononoscopy (alternative Xray studies discussed). Discussed proc and risks to patient and mother which include but not limited to medication reaction, bleeding, perforation, aspiration. She is agreeable so will try to do bowel prep with plan for EGD/[place] on monday. Clear liquids in the meantime Diarrhea--none NPO but fine to get stool studies for chronic infection--cdiff and Giardia, crypto, O/P, WBCs, hemoccult. EGD with SB bx for sprue and colo also as above. nausea and vomiting--PPI for PUD. EGD and colo as above. GB less likely etiology with u/s and HIDA negative. Check cortisol in am for [place].
[2017-05-13] MEDS ORDERED: MAGNESIUM CITRATE 296 ML/BTL PO ONE (20:00)
[2017-05-13 20:06] LABS: BASO % 0.3 %; BASO ABS # 0.02 K/uL (0-0.2); EOS % 2.1 %; HEMATOCRIT 39.7 % (37-47); IG% 0.1 %; LYMPH % 28.9 %; LYMPH ABS # 2.07 K/uL (1.2-3.4); MEAN CORPUSCULAR HEMOGLOBIN 31.6 pg (25-34); MEAN PLATELET VOLUME 10.3 fL (7.4-10.4); MONO % 12.3 %; NEUT % 56.3 %; PLATELET COUNT 226 K/uL (130-400); RED BLOOD COUNT 4.18 M/uL (4.2-5.4); WHITE BLOOD COUNT 7.16 K/uL (4.8-10.8)
[2017-05-13] MEDS: PANTOprazole SOD 40 MG TAB PO SCH (20:23)
[2017-05-13 20:32] LABS: CALCIUM 8.4 mg/dl (8.5-10.1); CREATININE 0.72 mg/dl (0.60-1.20); POTASSIUM 3.5 mmol/L (3.5-5.1)
[2017-05-13 20:47] LABS: COMPLETE YES; MEAN CORPUSCULAR HGB CONC 33.2 g/dl (32-36)
[2017-05-13 23:05] VITALS: BP 95/58; PULSE 62; TEMP 37.1; O2SAT 97
[2017-05-14] MEDS: ACETAMINOPHEN 325 MG TAB PO PRN (01:31)
[2017-05-14] MEDS: HYDROmorphone INJ 0.5 MG/0.5 ML SYR IV PRN ×6 (03:59→23:22)
[2017-05-14] MEDS: HEPARIN SOD 5000 UNIT/0.5 ML CARP SQ SCH ×3 (06:00→22:00)
[2017-05-14 07:33] VITALS: BP 84/48; PULSE 56; TEMP 37; O2SAT 96
[2017-05-14 07:41] LABS: BASO % 0.1 %; BASO ABS # 0.01 K/uL (0-0.2); COMPLETE YES; EOS % 2.3 %; HEMATOCRIT 38.2 % (37-47); IG% 0.1 %; LYMPH % 32.1 %; LYMPH ABS # 2.41 K/uL (1.2-3.4); MEAN CELL VOLUME 93.2 fL (80-100); MEAN CORPUSCULAR HGB CONC 33.2 g/dl (32-36); MEAN PLATELET VOLUME 9.9 fL (7.4-10.4); MONO % 12.9 %; NEUT % 52.5 %; PLATELET COUNT 218 K/uL (130-400)
[2017-05-14] MEDS: PANTOprazole SOD 40 MG TAB PO SCH ×2 (08:07→18:14)
[2017-05-14] MEDS: LAVAGE SOLUTION 4000ML PO SCH ×2 (08:08→14:10)
[2017-05-14 08:09] LABS: BUN/CREATININE RATIO 5.9 (10-20); CALCIUM 8.1 mg/dl (8.5-10.1); CREATININE 0.7 mg/dl (0.60-1.20); POTASSIUM 3.5 mmol/L (3.5-5.1)
[2017-05-14 08:12] LABS: ALB/GLOB RATIO 1.1 (0.9-2)
--- NOTE | 2017-05-14 14:43 | Gastroenterology Progress Note ---
Progress Note Date of Service: May 14, 2017 Subjective Pt evaluation today including: conversation w/ patient, conversation w/ family (father), physical exam, chart review, lab review, review of studies, review of inpatient medication list CC f/u abd pain, n/v, diarrhea HPI Pt states abd pain about the same. Is prepping for colonoscopy and look like drank about half of colyte already. Review of Systems Respiratory: No shortness of breath Cardiac: No chest pain Medications Current Inpatient Medications Medications (Trade) Dose Ordered Sig/Get Route Start Time Stop Time Status Last Admin Dose Admin Hydromorphone HCl (Dilaudid Inj) 0.5 mg Q3H PRN IV 05/11/17 20:45 05/25/17 20:44 05/14/17 14:10 0.5 MG Acetaminophen (Tylenol Tab) 650 mg Q4H PRN PO 05/11/17 20:45 06/10/17 20:44 05/14/17 01:31 650 MG Al Hydrox/Mg Hydrox/Simethicone (Maalox Max Susp) 15 ml Q4H PRN PO 05/11/17 20:45 06/10/17 20:44 Magnesium Hydroxide (Milk Of Magnesia Susp) 30 ml Q6H PRN PO 05/11/17 20:45 06/10/17 20:44 Polyethylene (Miralax Powder Packet) 17 gm DAILY PRN PO 05/11/17 22:15 06/10/17 22:14 Zolpidem Tartrate (Ambien Tab) 5 mg HSZ PRN PO 05/11/17 20:45 06/10/17 20:44 Ondansetron HCl (Zofran Inj) 4 mg Q6H PRN IV 05/11/17 20:45 06/10/17 20:44 05/13/17 06:01 4 MG Heparin Sodium (Porcine) (Heparin Sq 5000 Unit/0.5ml) 5,000 unit Q8H SQ 05/12/17 06:00 06/11/17 05:59 05/12/17 13:44 5,000 UNIT Pantoprazole Sodium (Protonix Tab) 40 mg BIDM PO 05/13/17 20:00 06/12/17 19:59 05/14/17 08:07 40 MG Polyethylene Glycol/ Electrolytes (Golytely Soln) 8 dose TODAY@0800,1500 PO 05/14/17 08:00 05/14/17 15:01 05/14/17 14:10 8 DOSE Objective Vital Signs Date Time Temp Pulse Resp B/P (MAP) Pulse Ox O2 Delivery O2 Flow Rate FiO2 05/14/17 08:00 Room Air 05/14/17 07:33 37.0 56 16 84/48 (60) 96 Room Air 05/13/17 23:30 Room Air 05/13/17 23:05 37.1 62 16 95/58 (70) 97 Room Air 05/13/17 15:30 Room Air 05/13/17 15:07 37.3 73 18 103/66 (78) 96 Room Air Physical Exam General Appearance: WD/WN, no apparent distress Respiratory/Chest: normal breath sounds, no respiratory distress Cardiovascular: no murmur Abdomen: normal bowel sounds, non tender, soft, no organomegaly Neurologic/Psych: normal mood/affect Laboratory Results Last 24 Hours Test 05/13/17 19:59 05/14/17 04:00 05/14/17 07:32 White Blood Count 7.16 K/uL 7.50 K/uL Red Blood Count 4.18 M/uL 4.10 M/uL Hemoglobin 13.2 g/dL 12.7 g/dL Hematocrit 39.7 % 38.2 % Mean Corpuscular Volume 95.0 fL 93.2 fL Mean Corpuscular Hemoglobin 31.6 pg 31.0 pg Mean Corpuscular Hemoglobin Concent 33.2 g/dl 33.2 g/dl Platelet Count 226 K/uL 218 K/uL Mean Platelet Volume 10.3 fL 9.9 fL Neutrophils (%) (Auto) 56.3 % 52.5 % Lymphocytes (%) (Auto) 28.9 % 32.1 % Monocytes (%) (Auto) 12.3 % 12.9 % Eosinophils (%) (Auto) 2.1 % 2.3 % Basophils (%) (Auto) 0.3 % 0.1 % Neutrophils # (Auto) 4.03 K/uL 3.93 K/uL Lymphocytes # (Auto) 2.07 K/uL 2.41 K/uL Monocytes # (Auto) 0.88 K/uL 0.97 K/uL Eosinophils # (Auto) 0.15 K/uL 0.17 K/uL Basophils # (Auto) 0.02 K/uL 0.01 K/uL RDW Standard Deviation 43.2 fL 42.2 fL RDW Coefficient of Variation 12.6 % 12.4 % Immature Granulocyte % (Auto) 0.1 % 0.1 % Immature Granulocyte # (Auto) 0.01 K/uL 0.01 K/uL Sodium Level 143 mmol/L 142 mmol/L Potassium Level 3.5 mmol/L 3.5 mmol/L Chloride Level 109 mmol/L 108 mmol/L Carbon Dioxide Level 32 mmol/L 29 mmol/L Anion Gap 2.0 mmol/L 5.0 mmol/L Blood Urea Nitrogen 4 mg/dl 4 mg/dl Creatinine 0.72 mg/dl 0.70 mg/dl Est Creatinine Clear Calc Drug Dose 117.3 ml/min 120.6 ml/min Estimated GFR () 140.7 145.6 Estimated GFR (Non- 121.4 125.6 BUN/Creatinine Ratio 5.0 5.9 Random Glucose 94 mg/dl 97 mg/dl Calcium Level 8.4 mg/dl 8.1 mg/dl Stool Occult Blood NEGATIVE Total Bilirubin 0.2 mg/dl Aspartate Amino Transf (AST/SGOT) 8 U/L Alanine Aminotransferase (ALT/SGPT) 17 U/L Alkaline Phosphatase 49 U/L Total Protein 6.2 gm/dl Albumin 3.2 gm/dl Globulin 3.0 gm/dl Albumin/Globulin Ratio 1.1 Cortisol AM Sample 3.04 mcg/dl Assessment and Plan Abd pain--migrating upper and lower---differential broad but PUD and inflammatory bowel disease in the differential. Recommend EGD and colononoscopy (alternative Xray studies discussed). Discussed proc and risks to patient and fateh which include but not limited to medication reaction, bleeding, perforation, aspiration. EGD with SB bx, /[place] to [place] with random bx is tomorrow ( monday). Clear liquids and NPO pos MN Diarrhea----cdiff neg , WBCs neg, hemoccult neg. Giardia, crypto, O/P pending. EGD with SB bx for sprue and colo with random bx also as above. nausea and vomiting--PPI for PUD. EGD and colo as above. GB less likely etiology with u/s and HIDA negative. Borderline low cortisol--discussed with DR Simon who is going to do furhther testing to rule out Addisons
--- NOTE | 2017-05-14 14:50 | Progress Note ---
Subjective Date of Service: May 14, 2017. Subjective Pt evaluation today including: conversation w/ patient, conversation w/ family , conversation w/ human resource consultant Pt with ongoing abd pain and nausea that are improved on current regimen, however not resolving. She has been tolerating clears and did have a few crackers last night. Has been able to sleep. Was given mag citrate yesterday and has had multiple bowel movements since that time. Pt denies fever, SOB, chest pain, LE pain or swelling. Problem List Medical Problems: (1) Allergic reaction Status: Acute (2) Anxiety Status: Acute (3) Contusion of left orbit Status: Acute (4) Hyperventilation syndrome Status: Acute (5) Intractable abdominal pain Status: Acute (6) Left knee injury Status: Acute (7) Mild closed head injury Status: Acute (8) Right lower quadrant abdominal pain Status: Acute Review of Systems All Other Systems: Reviewed and Negative Objective Vital Signs Date Time Temp Pulse Resp B/P (MAP) Pulse Ox O2 Delivery O2 Flow Rate FiO2 05/14/17 08:00 Room Air 05/14/17 07:33 37.0 56 16 84/48 (60) 96 Room Air 05/13/17 23:30 Room Air 05/13/17 23:05 37.1 62 16 95/58 (70) 97 Room Air 05/13/17 15:30 Room Air 05/13/17 15:07 37.3 73 18 103/66 (78) 96 Room Air Physical Exam Comments: General Appearance: WD/WN, no apparent distress Eyes: normal inspection, EOMI Respiratory/Chest: normal breath sounds, no respiratory distress Cardiovascular: regular rate, rhythm, no edema Abdomen: soft, + tenderness--diffuse Extremities: non-tender, no pedal edema Neurologic/Psychiatric: alert, normal mood/affect Skin: normal color, warm/dry Laboratory Results Last 24 Hours Test 05/13/17 19:59 05/14/17 04:00 05/14/17 07:32 White Blood Count 7.16 K/uL 7.50 K/uL Red Blood Count 4.18 M/uL 4.10 M/uL Hemoglobin 13.2 g/dL 12.7 g/dL Hematocrit 39.7 % 38.2 % Mean Corpuscular Volume 95.0 fL 93.2 fL Mean Corpuscular Hemoglobin 31.6 pg 31.0 pg Mean Corpuscular Hemoglobin Concent 33.2 g/dl 33.2 g/dl Platelet Count 226 K/uL 218 K/uL Mean Platelet Volume 10.3 fL 9.9 fL Neutrophils (%) (Auto) 56.3 % 52.5 % Lymphocytes (%) (Auto) 28.9 % 32.1 % Monocytes (%) (Auto) 12.3 % 12.9 % Eosinophils (%) (Auto) 2.1 % 2.3 % Basophils (%) (Auto) 0.3 % 0.1 % Neutrophils # (Auto) 4.03 K/uL 3.93 K/uL Lymphocytes # (Auto) 2.07 K/uL 2.41 K/uL Monocytes # (Auto) 0.88 K/uL 0.97 K/uL Eosinophils # (Auto) 0.15 K/uL 0.17 K/uL Basophils # (Auto) 0.02 K/uL 0.01 K/uL RDW Standard Deviation 43.2 fL 42.2 fL RDW Coefficient of Variation 12.6 % 12.4 % Immature Granulocyte % (Auto) 0.1 % 0.1 % Immature Granulocyte # (Auto) 0.01 K/uL 0.01 K/uL Sodium Level 143 mmol/L 142 mmol/L Potassium Level 3.5 mmol/L 3.5 mmol/L Chloride Level 109 mmol/L 108 mmol/L Carbon Dioxide Level 32 mmol/L 29 mmol/L Anion Gap 2.0 mmol/L 5.0 mmol/L Blood Urea Nitrogen 4 mg/dl 4 mg/dl Creatinine 0.72 mg/dl 0.70 mg/dl Est Creatinine Clear Calc Drug Dose 117.3 ml/min 120.6 ml/min Estimated GFR () 140.7 145.6 Estimated GFR (Non- 121.4 125.6 BUN/Creatinine Ratio 5.0 5.9 Random Glucose 94 mg/dl 97 mg/dl Calcium Level 8.4 mg/dl 8.1 mg/dl Stool Occult Blood NEGATIVE Total Bilirubin 0.2 mg/dl Aspartate Amino Transf (AST/SGOT) 8 U/L Alanine Aminotransferase (ALT/SGPT) 17 U/L Alkaline Phosphatase 49 U/L Total Protein 6.2 gm/dl Albumin 3.2 gm/dl Globulin 3.0 gm/dl Albumin/Globulin Ratio 1.1 Cortisol AM Sample 3.04 mcg/dl Assessment and Plan 21 y/o F who denies a past medical history. She has had progressive RUQ and generalized abdominal pain for 2-3 weeks. She is having difficulty eating due to pain associated with ingestion. Abd pain: Uncertain etiology Fungal, giardia, stool cx pending Cdiff neg Attempted to order gastric emptying study, however can only be done on Wednesdays now per radiology Cannot obtain upper GI series with small bowel follow through on the weekend Attempting carafate prior to PO to determine if this is upper GI, pt has had less emesis with this but ongoing pain and nausea GB US neg, HIDA neg CTAP and pelvic US on 04/27 neg Continue IVF CBC, PRP, UA, amylase, lipase, LFT neg Neg urine GI planning for EGD and c-scope tomorrow AM AM cortisol low at 3.07, pt with hx of hives on prednisone--will be unable to do ACTH stim test given allergy, however Jasper's seems less likely given Na , BUN, CBC, K, and Ca are all WNL. If ongoing concerns s/p endo tomorrow, could consider checking ACTH and plasma renin, aldosterone, DHEA, etc to help determine if worth risk of ACTH stim testing The surgery service was contacted by admitting physician and have stated that this is not a surgical issue. Heparin for DVT proph
[2017-05-14 16:10] VITALS: BP 113/75; PULSE 55; TEMP 36.4; O2SAT 97
[2017-05-14] MEDS: KETOROLAC TROMETHAMINE 30 MG/ML VIAL IV PRN (20:43)
[2017-05-14 22:45] VITALS: BP 96/60; PULSE 48; TEMP 36.4; O2SAT 97
[2017-05-15] VITALS (9 sets, daily range): BP systolic 83–123; BP diastolic 45–75; PULSE 55–76; TEMP 36.6–37; O2SAT 94–97
[2017-05-15] MEDS: HEPARIN SOD 5000 UNIT/0.5 ML CARP SQ SCH ×3 (05:41→22:00)
[2017-05-15] MEDS: PANTOprazole SOD 40 MG TAB PO SCH ×2 (08:00→18:54)
[2017-05-15] MEDS: HYDROmorphone INJ 0.5 MG/0.5 ML SYR IV PRN ×3 (08:15→19:41)
[2017-05-15] MEDS ORDERED: MAGNESIUM CITRATE 296 ML/BTL PO ONE (08:30)
[2017-05-15] MEDS: KETOROLAC TROMETHAMINE 30 MG/ML VIAL IV PRN ×2 (12:01→23:35)
--- NOTE | 2017-05-15 15:34 | Progress Note ---
Subjective Date of Service: May 15, 2017. Subjective Pt evaluation today including: conversation w/ patient, conversation w/ family , physical exam, chart review, lab review, review of studies, review of inpatient medication list Pt reports pain still present Not improved or worsened No nausea or vomiting Pt denies any fevers at this time Problem List Medical Problems: (1) Allergic reaction Status: Acute (2) Anxiety Status: Acute (3) Contusion of left orbit Status: Acute (4) Hyperventilation syndrome Status: Acute (5) Intractable abdominal pain Status: Acute (6) Left knee injury Status: Acute (7) Mild closed head injury Status: Acute (8) Right lower quadrant abdominal pain Status: Acute Review of Systems Constitutional: No fever, No chills, No sweats, No weight loss, No weakness Eyes: No worsening of vision, No eye pain, No redness, No discharge ENT: No hearing loss, No unusual epistaxis, No nasal symptoms, No sore throat Respiratory: No cough, No sputum, No wheezing, No shortness of breath, No dyspnea on exertion Cardiac: No chest pain, No orthopnea, No PND, No edema Abdomen: + pain, No nausea, No vomiting, No diarrhea, No constipation Musculoskeletal: No joint pain, No muscle pain, No swelling, No calf pain Female : No dysuria, No urinary frequency, No hematuria, No incontinence, No abnormal vaginal bleeding Neurologic: No memory loss, No paralysis, No weakness, No numbness/tingling Psychiatric: No depression symptoms, No anhedonism, No anxiety, No insomnia Endo: No fatigue, No excessive thirst, No excessive urination Skin: No rash, No itch Objective Vital Signs Date Time Temp Pulse Resp B/P (MAP) Pulse Ox O2 Delivery O2 Flow Rate FiO2 05/15/17 15:02 36.7 55 18 123/75 (91) 97 Room Air 05/15/17 08:00 Room Air 05/15/17 07:20 37.0 65 20 98/66 (77) 96 Room Air 05/14/17 23:25 Room Air 05/14/17 22:45 36.4 48 18 96/60 (72) 97 Room Air 05/14/17 16:10 36.4 55 18 113/75 (88) 97 Room Air 05/14/17 15:30 Room Air Physical Exam General Appearance: WD/WN, no apparent distress Eyes: normal inspection, PERRL, EOMI, sclerae normal Neck: supple, no adenopathy, thyroid normal, no JVD Respiratory/Chest: chest non-tender, lungs clear, normal breath sounds, no respiratory distress Cardiovascular: regular rate, rhythm, no edema, no gallop, no JVD Abdomen: normal bowel sounds, non tender, soft, no organomegaly Neurologic/Psychiatric: no motor/sensory deficits, alert, normal mood/affect, oriented x 3 Laboratory Results Last 24 Hours Test 05/15/17 09:19 Magnesium Level 2.0 mg/dl 25-Hydroxy Vitamin D Total 46.3 ng/ml Thyroid Stimulating Hormone (TSH) 1.100 uIu/ml Assessment and Plan 21 y/o F with progressive RUQ and generalized abdominal pain for 2-3 weeks. She is having difficulty eating due to pain associated with ingestion. Abd pain of uncertain etiology, persistent at this time and diffuse in nature and at times radiation to right shoulder Fungal, giardia, stool cx still pending at this time Cdiff neg Due for EGD and colonoscopy 05/15 ?IBD vs PUD Cannot obtain upper GI series with small bowel follow through on the weekend GB US neg, HIDA neg CTAP and pelvic US on 04/27 neg Continue IVF CBC, PRP, UA, amylase, lipase, LFT neg Neg urine AM cortisol low at 3.07, pt with hx of hives on prednisone--will be unable to do ACTH stim test given allergy, however [place]'s seems less likely given Na , BUN, CBC, K, and Ca are all WNL. If ongoing concerns s/p endo, could consider checking ACTH and plasma renin, aldosterone, DHEA, etc to help determine if worth risk of ACTH stim testing Heparin for DVT proph
[2017-05-15] MEDS ORDERED: PROPOFOL IV EMULSION 10 MG/ML 20 ML VIAL IV ONE (15:59)
[2017-05-15] MEDS ORDERED: LIDOCAINE HCL 2% 2 ML VIAL (20MG/ML) ONE ×2 (15:59→16:41)
[2017-05-15] MEDS ORDERED: MIDAZOLAM HCL 1 MG/ML 2ML VIAL ONE (15:59)
[2017-05-15] MEDS ORDERED: FENTANYL CITRATE INJ 50 MCG/1 ML 2 ML VIAL ONE (15:59)
--- NOTE | 2017-05-15 16:36 | Endo History and Physical ---
History & Physical Date of Service: May 15, 2017. Chief Complaint: abd pain diarrhea Referring Physician: Dr Bob History of Present Illness For EGD and colonoscopy Past Surgical History Hx Cardiac Surgery: No Hx Abdominal Surgery: No Hx Post-Op Nausea and Vomiting: No Hx Cancer Surgery: No Hx Thoracic Surgery: No Hx Orthopedic: No Hx Urinary Tract Surgery: No Social History Smoking Status: Current Every Day Smoker Hx Substance Use: Yes (dilaudid for pain since arrival to hospital) Hx Alcohol Use: No Allergies Coded Allergies: Prednisone (Verified Allergy, Severe, HIVES, 05/11/17) Amoxicillin (Verified Allergy, Intermediate, hives, 05/11/17) Penicillins (Verified Allergy, Intermediate, HIVES, 05/11/17) Ciprofloxacin (Verified Allergy, Unknown, unsure had a reaction as an , 05/11/17) Clavulanic Acid (Verified Allergy, Unknown, Hives/Rash, 05/11/17) Current Medications Reported Home Medications Medications Dose Route/Sig Max Daily Dose Days Date Category No Active Prescriptions or Reported Medications Rx Vital Signs Weight (Kilograms): 59.100 Height (Feet): 5 Height (Inches): 8.00 Date Time Temp Pulse Resp B/P (MAP) Pulse Ox O2 Delivery O2 Flow Rate FiO2 05/15/17 15:37 36.5 59 22 127/71 (89) 98 Room Air 05/15/17 15:23 36.7 55 18 123/75 97 Room Air 05/15/17 15:02 36.7 55 18 123/75 (91) 97 Room Air 05/15/17 08:00 Room Air 05/15/17 07:20 37.0 65 20 98/66 (77) 96 Room Air 05/14/17 23:25 Room Air 05/14/17 22:45 36.4 48 18 96/60 (72) 97 Room Air 05/14/17 16:10 36.4 55 18 113/75 (88) 97 Room Air Physical Exam General Appearance: WD/WN Respiratory/Chest: Respiratory effort: no dyspnea Cardiovascular: Heart Auscultation: RRR Abdomen: Inspection & Palpation: soft Assessment and Plan Abd pain, diarrhea for EGD and Colonoscopy
--- NOTE | 2017-05-15 16:37 | Discharge Instructions ---
Endoscopy Patient Instructions Date / Procedure(s) Performed May 15, 2017. Colonoscopy, EGD Allergy Information Coded Allergies: Prednisone (Verified Allergy, Severe, HIVES, 05/11/17) Amoxicillin (Verified Allergy, Intermediate, hives, 05/11/17) Penicillins (Verified Allergy, Intermediate, HIVES, 05/11/17) Ciprofloxacin (Verified Allergy, Unknown, unsure had a reaction as an , 05/11/17) Clavulanic Acid (Verified Allergy, Unknown, Hives/Rash, 05/11/17) Discharge Date / Findings May 15, 2017. normal EGD and colonoscopy Medication Instructions Restart Stopped Medication(s): resume meds Current Inpatient Medications Medications (Trade) Dose Ordered Sig/Get Route Start Time Stop Time Status Last Admin Dose Admin Hydromorphone HCl (Dilaudid Inj) 0.5 mg Q3H PRN IV 05/11/17 20:45 05/25/17 20:44 05/15/17 13:52 0.5 MG Acetaminophen (Tylenol Tab) 650 mg Q4H PRN PO 05/11/17 20:45 06/10/17 20:44 05/14/17 01:31 650 MG Al Hydrox/Mg Hydrox/Simethicone (Maalox Max Susp) 15 ml Q4H PRN PO 05/11/17 20:45 06/10/17 20:44 Magnesium Hydroxide (Milk Of Magnesia Susp) 30 ml Q6H PRN PO 05/11/17 20:45 06/10/17 20:44 Polyethylene (Miralax Powder Packet) 17 gm DAILY PRN PO 05/11/17 22:15 06/10/17 22:14 Zolpidem Tartrate (Ambien Tab) 5 mg HSZ PRN PO 05/11/17 20:45 06/10/17 20:44 Ondansetron HCl (Zofran Inj) 4 mg Q6H PRN IV 05/11/17 20:45 06/10/17 20:44 05/13/17 06:01 4 MG Heparin Sodium (Porcine) (Heparin Sq 5000 Unit/0.5ml) 5,000 unit Q8H SQ 05/12/17 06:00 06/11/17 05:59 05/12/17 13:44 5,000 UNIT Pantoprazole Sodium (Protonix Tab) 40 mg BIDM PO 05/13/17 20:00 06/12/17 19:59 05/15/17 08:00 40 MG Ketorolac Tromethamine (Toradol Inj) 30 mg Q6H PRN IV 05/14/17 16:30 05/19/17 16:29 05/15/17 12:01 30 MG Provider Instructions Activity Restrictions - No exercising or heavy lifting for 24 hours. - Do not drink alcohol the day of the procedure. - Do not drive a car or operate machinery until the day after the procedure. - Do not make any important decisions or sign important papers in 24 hours after the procedure. Following Day: - Return to full activity which may include returning to work/school. Diet Start your diet with liquids and light foods (jello, soup, juice, toast). Then eat your usual diet if not nauseated. Treatment For Common After Affects For mild abdominal pain, bloating, or excessive gas: - Rest - Eat lightly - Lie on right side Follow-Up Information Follow-up with as scheduled Anesthesia Information What You Should Know You have had a procedure that required some medicine to reduce anxiety and discomfort. This treatment is called moderate sedation. After receiving the treatment, you may be sleepy, but you will be able to breathe on your own. The effects of the treatment may last for several hours. Follow these instructions along with Activity/Diet recommendations noted above: * Do NOT do anything where dizziness or clumsiness would be dangerous. * Rest quietly at home today, then you can be up and about tomorrow. * Have a responsible person stay with you the rest of today. * You may have had an I.V. today. If so, you may take the dressing off later today. Recommendations Call your doctor if: * Trouble breathing * Continuous vomiting for more than 24 hours * Temperature above 101 degrees * Severe abdominal pain or bloating * Pain not relieved by pain medicine ordered * There is increased drainage or redness from any incision * A large amount of rectal bleeding greater than 2-3 tablespoons. (If you had a polyp/s removed or have hemorrhoids, a small amount of blood - from the rectum is to be expected.) * You have any unanswered questions or concerns. IN THE EVENT OF A SERIOUS EMERGENCY, GO TO THE NEAREST EMERGENCY ROOM Your discharge instructions were prepared by provider Armand Garcia. Patient Instructions Signature Page Paty Hernandez Patient (or Guardian) Signature/Date: I have read and understand the instructions given to me by my caregivers. Caregiver/RN/Doctor Signature/Date: The above-named patient and/or guardian has received patient instructions on this date. + Original Patient Signature Page (only) stays with chart. Please make copy for patient.
--- NOTE | 2017-05-15 16:40 | GI REPORT ---
Procedure Date: 05/15/2017 4:04 PM Procedure: Upper GI endoscopy Indications: Generalized abdominal pain, Diarrhea, Nausea with vomiting Medicines: Midazolam 2 mg IV, Fentanyl 100 micrograms IV, Propofol total dose 150 mg IV, Lidocaine 80 mg IV Complications: No immediate complications. Estimated Blood Loss: . Estimated blood loss was minimal. Procedure: Pre-Anesthesia Assessment: - Prior to the procedure, a History and Physical was performed, and patient medications, allergies and sensitivities were reviewed. The patient's tolerance of previous anesthesia was reviewed. - The risks and benefits of the procedure and the sedation options and risks were discussed with the patient. All questions were answered and informed consent was obtained. After obtaining informed consent, the endoscope was passed under direct vision. Throughout the procedure, the patient's blood pressure, pulse, and oxygen saturations were monitored continuously. The scope was introduced through the mouth, and advanced to the second part of duodenum. The upper GI endoscopy was accomplished without difficulty. The patient tolerated the procedure well. Findings: The examined esophagus was normal. The entire examined stomach was normal. The 2nd part of the duodenum was normal. Biopsies were taken with a cold forceps for histology. Estimated blood loss was minimal. Impression: - Normal esophagus. - Normal stomach. - Normal 2nd part of the duodenum. Biopsied. Recommendation: - Return patient to [facility] for [facility] care. - Continue present medications. Armand Garcia M.D. Armand Garcia MD 05/15/2017 4:40:10 PM This report has been signed electronically. Note Initiated On: 05/15/2017 4:04 PM I attest to the content of the Intraoperative Record and orders documented therein, exceptions below
[2017-05-15] MEDS ORDERED: EpHEDrine SULFATE 50MG/5ML SYR ONE (16:41)
--- NOTE | 2017-05-15 16:42 | GI REPORT ---
Procedure Date: 05/15/2017 4:03 PM Procedure: Colonoscopy Indications: Clinically significant diarrhea of unexplained origin Medicines: Fentanyl 100 micrograms IV, Midazolam 2 mg IV, Propofol total dose 150 mg IV, Lidocaine 80 mg IV Complications: No immediate complications. Estimated Blood Loss: Estimated blood loss was minimal. Procedure: Pre-Anesthesia Assessment: - Prior to the procedure, a History and Physical was performed, and patient medications, allergies and sensitivities were reviewed. The patient's tolerance of previous anesthesia was reviewed. - The risks and benefits of the procedure and the sedation options and risks were discussed with the patient. All questions were answered and informed consent was obtained. After I obtained informed consent, the scope was passed under direct vision. Throughout the procedure, the patient's blood pressure, pulse, and oxygen saturations were monitored continuously. The scope was introduced through the anus and advanced to the terminal ileum. The colonoscopy was performed without difficulty. The patient tolerated the procedure well. The quality of the bowel preparation was excellent. Findings: The terminal ileum appeared normal. The colon (entire examined portion) appeared normal. Biopsies for histology were taken with a cold forceps from the ascending colon, transverse colon and descending colon for evaluation of microscopic colitis. Estimated blood loss was minimal. Impression: - The examined portion of the ileum was normal. - The entire examined colon is normal. Biopsied. Recommendation: - Return patient to [facility] for ongoing care. - Await pathology results. Armand Garcia M.D. Armand Garcia MD 05/15/2017 4:41:57 PM This report has been signed electronically. Note Initiated On: 05/15/2017 4:03 PM I attest to the content of the Intraoperative Record and orders documented therein, exceptions below
--- NOTE | 2017-05-15 16:47 | Gastroenterology Progress Note ---
Progress Note Date of Service: May 15, 2017 Subjective Pt evaluation today including: conversation w/ patient, chart review Medications Current Inpatient Medications Medications (Trade) Dose Ordered Sig/Get Route Start Time Stop Time Status Last Admin Dose Admin Hydromorphone HCl (Dilaudid Inj) 0.5 mg Q3H PRN IV 05/11/17 20:45 05/25/17 20:44 05/15/17 13:52 0.5 MG Acetaminophen (Tylenol Tab) 650 mg Q4H PRN PO 05/11/17 20:45 06/10/17 20:44 05/14/17 01:31 650 MG Al Hydrox/Mg Hydrox/Simethicone (Maalox Max Susp) 15 ml Q4H PRN PO 05/11/17 20:45 06/10/17 20:44 Magnesium Hydroxide (Milk Of Magnesia Susp) 30 ml Q6H PRN PO 05/11/17 20:45 06/10/17 20:44 Polyethylene (Miralax Powder Packet) 17 gm DAILY PRN PO 05/11/17 22:15 06/10/17 22:14 Zolpidem Tartrate (Ambien Tab) 5 mg HSZ PRN PO 05/11/17 20:45 06/10/17 20:44 Ondansetron HCl (Zofran Inj) 4 mg Q6H PRN IV 05/11/17 20:45 06/10/17 20:44 05/13/17 06:01 4 MG Heparin Sodium (Porcine) (Heparin Sq 5000 Unit/0.5ml) 5,000 unit Q8H SQ 05/12/17 06:00 06/11/17 05:59 05/12/17 13:44 5,000 UNIT Pantoprazole Sodium (Protonix Tab) 40 mg BIDM PO 05/13/17 20:00 06/12/17 19:59 05/15/17 08:00 40 MG Ketorolac Tromethamine (Toradol Inj) 30 mg Q6H PRN IV 05/14/17 16:30 05/19/17 16:29 05/15/17 12:01 30 MG Objective Vital Signs Date Time Temp Pulse Resp B/P (MAP) Pulse Ox O2 Delivery O2 Flow Rate FiO2 05/15/17 15:37 36.5 59 22 127/71 (89) 98 Room Air 05/15/17 15:23 36.7 55 18 123/75 97 Room Air 05/15/17 15:02 36.7 55 18 123/75 (91) 97 Room Air 05/15/17 08:00 Room Air 05/15/17 07:20 37.0 65 20 98/66 (77) 96 Room Air 05/14/17 23:25 Room Air 05/14/17 22:45 36.4 48 18 96/60 (72) 97 Room Air Physical Exam General Appearance: WD/WN, + pertinent finding (anxious) Abdomen: normal bowel sounds, non tender Laboratory Results Last 24 Hours Test 05/15/17 09:19 Magnesium Level 2.0 mg/dl 25-Hydroxy Vitamin D Total 46.3 ng/ml Thyroid Stimulating Hormone (TSH) 1.100 uIu/ml Assessment and Plan The patient is being evaluated for abdominal pain nausea vomiting and diarrhea. She underwent an EGD which was normal today. Small bowel biopsies were done to rule out celiac disease. Colonoscopy was carried into the ileum which was normal. The entire colonic mucosa was normal without any evidence of inflammatory bowel disease. Random colon biopsies were done to rule out microscopic colitis. Multiple blood and stool tests are pending at this time.
--- NOTE | 2017-05-15 16:47 | Anesthesiology Progress Note ---
Anesthesia Post Op Note Date & Time May 15, 2017 at 16:46 Vital Signs Pain Intensity: 7.0 Vital Signs Past 12 Hours Date Time Temp Pulse Resp B/P (MAP) Pulse Ox O2 Delivery O2 Flow Rate FiO2 05/15/17 15:37 36.5 59 22 127/71 (89) 98 Room Air 05/15/17 15:23 36.7 55 18 123/75 97 Room Air 05/15/17 15:02 36.7 55 18 123/75 (91) 97 Room Air 05/15/17 08:00 Room Air 05/15/17 07:20 37.0 65 20 98/66 (77) 96 Room Air Notes Mental Status: alert / awake / arousable, participated in evaluation Pt Amnestic to Procedure: Yes Nausea / Vomiting: adequately controlled Pain: adequately controlled Airway Patency, RR, SpO2: stable & adequate BP & HR: stable & adequate Hydration State: stable & adequate Anesthetic Complications: no major complications apparent
[2017-05-15 20:16] LABS: BENZODIAZEPINE, URINE POS (NEG); COCAINE,URINE NEG (NEG); PHENCYCLIDINE, URINE NEG (NEG)
[2017-05-16] MEDS: HYDROmorphone INJ 0.5 MG/0.5 ML SYR IV PRN ×2 (00:35→07:19)
[2017-05-16 03:35] VITALS: BP 103/67; PULSE 57; TEMP 36.6; O2SAT 97
[2017-05-16] MEDS: HEPARIN SOD 5000 UNIT/0.5 ML CARP SQ SCH ×2 (05:33→13:34)
[2017-05-16 07:59] VITALS: BP 88/52; PULSE 47; TEMP 36.9; O2SAT 95
[2017-05-16 08:27] LABS: BASO % 0.4 %; BASO ABS # 0.03 K/uL (0-0.2); COMPLETE YES; EOS % 2.1 %; HEMATOCRIT 41.2 % (37-47); IG% 0.2 %; LYMPH % 15.6 %; LYMPH ABS # 1.29 K/uL (1.2-3.4); MEAN CELL VOLUME 92.6 fL (80-100); MEAN CORPUSCULAR HEMOGLOBIN 30.3 pg (25-34); MEAN CORPUSCULAR HGB CONC 32.8 g/dl (32-36); MEAN PLATELET VOLUME 10.1 fL (7.4-10.4); MONO % 12.8 %; NEUT % 68.9 %; PLATELET COUNT 231 K/uL (130-400); RED BLOOD COUNT 4.45 M/uL (4.2-5.4); WHITE BLOOD COUNT 8.28 K/uL (4.8-10.8)
[2017-05-16] MEDS: PANTOprazole SOD 40 MG TAB PO SCH (08:49)
[2017-05-16 09:02] LABS: BUN/CREATININE RATIO 14.2 (10-20); CALCIUM 9.2 mg/dl (8.5-10.1); CREATININE 0.71 mg/dl (0.60-1.20)
[2017-05-16] MEDS: TRAMADOL HCL 50 MG TAB PO PRN ×2 (10:22→14:33)
[2017-05-16 11:56] VITALS: O2SAT 95
[2017-05-16] MEDS ORDERED: ULT50X PO ×2 (12:29→17:15)
--- NOTE | 2017-05-16 12:32 | Discharge Instructions ---
Discharge Instructions Date of Service May 16, 2017. Admission Reason for Admission: Abdominal Pain Discharge Discharge Diagnosis / Problem: Abdominal pain Discharge Goals Goal(s): Decrease discomfort, Improve function, Increase independence, Improve disease control, Learn about illness, Diagnostic testing, Therapeutic intervention Activity Recommendations Activity Limitations: resume your previous activity Exercise/Sports Limitations: none Shower/Bathe: no limitations Driving or Machine Use: no limitations . Instructions / Follow-Up Instructions / Follow-Up Patient to be discharged home Please take tramadol as needed every 4 hrs for pain Also take lidoderm patch 5% to apply daily in addition to percocet 7.5/325 1 capsule every 4 hrs as needed for pain If worsening pain, or fevers or chills please report to ER Please follow up with Sotero Bob in 1-2 weeks Current Hospital Diet Patient's current hospital diet: Regular Diet Discharge Diet Recommended Diet: Regular Diet Procedures Procedures Performed: Colonoscopy with random colon bx and EGD with duodenal bx Pending Studies Studies pending at discharge: no Medical Emergencies . Who to Call and When: Medical Emergencies: If at any time you feel your situation is an emergency, please call 911 immediately. . Non-Emergent Contact Non-Emergency issues call your: Primary Care Provider Call Non-Emergent contact if: you have a fever, your pain is worsening . . "Provider Documentation" section prepared by Byron Donahue. . VTE Core Measure Inpt VTE Proph given/why not?: Unfractionated heparin SQ
[2017-05-16] MEDS ORDERED: LIDODERM (LIDOCAINE) PATCH 5% TD ONE (14:15)
[2017-05-16] MEDS ORDERED: OXYCODONE/ACETAMINOPHEN 7.5-325 TAB PO PRN (15:00)
[2017-05-16 15:07] VITALS: BP 93/56; PULSE 52; TEMP 36.7; O2SAT 96
[2017-05-16] MEDS ORDERED: OXYC7.5T62 PO ×2 (16:23→17:15)
[2017-05-16] MEDS ORDERED: LDDP5 TD ×2 (16:23→17:15)
--- NOTE | 2017-05-16 16:47 | Discharge Summary ---
Discharge Summary Date of Service May 16, 2017. Discharge Summary Admission Date: May 11, 2017 at 20:50 Discharge Date: May 16, 2017 Discharge Disposition: Home Principal Diagnosis: Intractable abd pain Consultations: Gastroenterology Medication Reconciliation New Medications: Lidocaine (Lidocaine) 1 Patch Tdsy 1 PATCH TD QAM, #30 PATCH Oxycodone/Acetaminophen 7.5MG/325MG (Endocet 7.5MG/325MG) 1 Tab Tab 1 TAB PO Q4H PRN for Pain, #30 TAB Tramadol HCl (Tramadol HCl) 50 Mg Tab 50 MG PO Q4H PRN for Pain, #30 TAB Discharge Exam Review of Systems: Constitutional: No fever, No chills, No sweats, No weakness Eyes: No worsening of vision, No eye pain, No redness, No discharge ENT: No hearing loss, No unusual epistaxis, No nasal symptoms, No sore throat Respiratory: No cough, No sputum, No wheezing, No shortness of breath, No dyspnea on exertion Cardiovascular: No chest pain, No orthopnea, No PND, No edema, No claudication Abdomen: + pain, No nausea, No vomiting, No diarrhea, No constipation Musculoskeletal: No joint pain, No muscle pain, No swelling, No calf pain Genitourinary - Female: No dysuria, No urinary frequency, No urinary urgency , No urinary incontinence Neurologic: No memory loss, No paralysis, No weakness, No numbness/tingling , No vertigo Psychiatric: No depression symptoms, No anhedonism, No anxiety, No insomnia Endocrine: No fatigue, No excessive thirst, No excessive urination Physical Exam: General Appearance: WD/WN, no apparent distress Eyes: normal inspection, PERRL, EOMI, sclerae normal Neck: supple, no adenopathy, thyroid normal, no JVD Respiratory/Chest: chest non-tender, lungs clear, normal breath sounds, no respiratory distress Cardiovascular: regular rate, rhythm, no edema, no gallop, no JVD Abdomen / GI: normal bowel sounds, non tender, soft, no organomegaly Extremities: normal inspection, no calf tenderness, normal capillary refill , no pedal edema Neurologic/Psychiatric: 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 She is having difficulty eating due to pain associated with ingestion. Abd pain of uncertain etiology, persistent at this time and diffuse in nature and at times radiation to right shoulder Fungal, giardia, stool cx still pending at this time Cdiff neg EGD and colonoscopy 05/15 unremarkable, biopsies taken GB US neg, HIDA neg CTAP and pelvic US on 04/27 neg Neg urine AM cortisol low at 3.07, pt with hx of hives on prednisone--will be unable to do ACTH stim test given allergy, however [place]'s seems less likely given Na , BUN, CBC, K, and Ca are all WNL. If ongoing concerns s/p endo, could consider checking ACTH and plasma renin, aldosterone, DHEA, etc to help determine if worth risk of ACTH stim testing Discharge home on percocet, lidoderm patch and ultram, if worsening may benefit from pain management Heparin for DVT proph Total Time Spent: Greater than 30 minutes This includes examination of the patient, discharge planning, medication reconciliation, and communication with other providers. Discharge Instructions Please refer to the electronic Patient Visit Report (Discharge Instructions) for additional information. Additional Copies To Sotero Bob PA-C
--- NOTE | 2017-05-16 17:15 | Gastroenterology Progress Note ---
Progress Note Date of Service: May 16, 2017 Subjective Pt evaluation today including: conversation w/ patient, physical exam, chart review, lab review, review of studies, review of inpatient medication list CC f/u abd pain HPI Abd pain persists. No n/v. Being given narcotics for abd pain without good control Review of Systems Respiratory: No shortness of breath Cardiac: No chest pain Medications Current Inpatient Medications Medications (Trade) Dose Ordered Sig/Get Route Start Time Stop Time Status Last Admin Dose Admin Acetaminophen (Tylenol Tab) 650 mg Q4H PRN PO 05/11/17 20:45 06/10/17 20:44 05/14/17 01:31 650 MG Al Hydrox/Mg Hydrox/Simethicone (Maalox Max Susp) 15 ml Q4H PRN PO 05/11/17 20:45 06/10/17 20:44 Magnesium Hydroxide (Milk Of Magnesia Susp) 30 ml Q6H PRN PO 05/11/17 20:45 06/10/17 20:44 Polyethylene (Miralax Powder Packet) 17 gm DAILY PRN PO 05/11/17 22:15 06/10/17 22:14 Zolpidem Tartrate (Ambien Tab) 5 mg HSZ PRN PO 05/11/17 20:45 06/10/17 20:44 Ondansetron HCl (Zofran Inj) 4 mg Q6H PRN IV 05/11/17 20:45 06/10/17 20:44 05/13/17 06:01 4 MG Heparin Sodium (Porcine) (Heparin Sq 5000 Unit/0.5ml) 5,000 unit Q8H SQ 05/12/17 06:00 06/11/17 05:59 05/12/17 13:44 5,000 UNIT Pantoprazole Sodium (Protonix Tab) 40 mg BIDM PO 05/13/17 20:00 06/12/17 19:59 05/16/17 08:49 40 MG Ketorolac Tromethamine (Toradol Inj) 30 mg Q6H PRN IV 05/14/17 16:30 05/19/17 16:29 05/15/17 23:35 30 MG Tramadol HCl (Ultram Tab) 50 mg Q4H PRN PO 05/16/17 10:00 06/15/17 09:59 05/16/17 14:33 50 MG Lidocaine (Lidoderm Patch 5%) 1 patch QAM TD 05/17/17 09:00 06/16/17 08:59 Miscellaneous (Remove Lidoderm Patch) 1 ea DAILY@21 N/A 05/16/17 21:00 06/15/17 20:59 Oxycodone/ Acetaminophen (Percocet 7.5-325MG Tab) 1 tab Q4H PRN PO 05/16/17 15:00 05/30/17 14:59 05/16/17 16:27 1 TAB Objective Vital Signs Date Time Temp Pulse Resp B/P (MAP) Pulse Ox O2 Delivery O2 Flow Rate FiO2 05/16/17 15:35 Room Air 05/16/17 15:07 36.7 52 16 93/56 (68) 96 Room Air 05/16/17 11:56 95 Room Air 05/16/17 07:59 36.9 47 14 88/52 (64) 95 Room Air 05/16/17 07:20 Room Air 05/16/17 03:35 36.6 57 16 103/67 (79) 97 Room Air 05/15/17 23:35 Room Air 05/15/17 23:03 36.6 61 18 99/65 (76) 97 Room Air 05/15/17 20:14 36.7 60 18 83/45 (58) 94 Room Air 05/15/17 19:16 36.8 64 18 96/56 (69) 95 Room Air 05/15/17 18:15 36.7 76 16 94/59 (71) 97 Room Air 05/15/17 17:45 36.7 58 18 109/71 (84) 97 Room Air 05/15/17 17:15 Room Air 05/15/17 17:15 97 Room Air 05/15/17 17:15 36.7 62 18 108/73 (85) 97 Room Air Physical Exam General Appearance: WD/WN, no apparent distress Respiratory/Chest: lungs clear, no respiratory distress Cardiovascular: no murmur Abdomen: normal bowel sounds, non tender, soft, no organomegaly Laboratory Results Last 24 Hours Test 05/15/17 17:50 05/16/17 08:10 Urine Opiates Screen POS Urine Methadone, Qualitative NEG Urine Barbiturates NEG Urine Phencyclidine (PCP) Level NEG Ur Amphetamine/Methamphetamine NEG MDMA (Ecstasy) Screen NEG Urine Benzodiazepines Screen POS Urine Cocaine Metabolite NEG Urine Marijuana (THC) NEG White Blood Count 8.28 K/uL Red Blood Count 4.45 M/uL Hemoglobin 13.5 g/dL Hematocrit 41.2 % Mean Corpuscular Volume 92.6 fL Mean Corpuscular Hemoglobin 30.3 pg Mean Corpuscular Hemoglobin Concent 32.8 g/dl Platelet Count 231 K/uL Mean Platelet Volume 10.1 fL Neutrophils (%) (Auto) 68.9 % Lymphocytes (%) (Auto) 15.6 % Monocytes (%) (Auto) 12.8 % Eosinophils (%) (Auto) 2.1 % Basophils (%) (Auto) 0.4 % Neutrophils # (Auto) 5.71 K/uL Lymphocytes # (Auto) 1.29 K/uL Monocytes # (Auto) 1.06 K/uL Eosinophils # (Auto) 0.17 K/uL Basophils # (Auto) 0.03 K/uL RDW Standard Deviation 42.0 fL RDW Coefficient of Variation 12.4 % Immature Granulocyte % (Auto) 0.2 % Immature Granulocyte # (Auto) 0.02 K/uL Sodium Level 141 mmol/L Potassium Level 4.0 mmol/L Chloride Level 107 mmol/L Carbon Dioxide Level 28 mmol/L Anion Gap 6.0 mmol/L Blood Urea Nitrogen 10 mg/dl Creatinine 0.71 mg/dl Est Creatinine Clear Calc Drug Dose 118.9 ml/min Estimated GFR () 143.1 Estimated GFR (Non- 123.5 BUN/Creatinine Ratio 14.2 Random Glucose 88 mg/dl Calcium Level 9.2 mg/dl Assessment and Plan Abd pain--migrating upper and lower---EGD/colo negative Diarrhea----cdiff neg , WBCs neg, hemoccult neg. Giardia, crypto, O/P pending. EGD with SB bx for sprue and colo with random bx scope neg bu path pending nausea and vomiting-- EGD and colo negative--improved Borderline low cortisol--defer to hospitalist With negative workup suspect if this is GI cause then bowel spasm/irritable bowel which should be treated with antispasmodics rather than narcotics. Narcotics can make bowel pain worse. Trial Bentyl 10 mg po q 6 hours and hopefully can descalate the narcotics.
[2017-05-16 18:25] VITALS: BP 93/56; PULSE 52; TEMP 36.7; O2SAT 96
[2017-05-16] MEDS ORDERED: DICYCLOMINE HCL 10 MG CAP PO SCH (18:30)
[2017-05-17] MEDS ORDERED: LIDODERM (LIDOCAINE) PATCH 5% TD SCH (09:00)
[2017-05-18 12:16] LABS: COD UR NEGATIVE NG/ML (CUTOFF=50); HYDROCOD UR NEGATIVE NG/ML (CUTOFF=50); HYDROMOR UR 595 NG/ML (CUTOFF=50); HYDROXYETHYLFLURAZEPAM CONF NEGATIVE NG/ML (CUTOFF=50); HYDROXYMIDAZOLAM >2000 NG/ML (CUTOFF=50); HYDROXYTRIAZOLAM CONF NEGATIVE NG/ML (CUTOFF=50); MORPHINE UR NEGATIVE NG/ML (CUTOFF=50); NORHYDROCODONE CONF UR NEGATIVE NG/ML (CUTOFF=50); OXYMORPH UR NEGATIVE NG/ML (CUTOFF=50); TEMAZEPAM CONF NEGATIVE NG/ML (CUTOFF=50)
[2017-05-23 13:31] LABS: CRYPTOSPORIDIUM AG TC 37213 NOT DETECTED (NOT DETECTED); O&P GIARDIA AG NOT DETECTED (NOT DETECTED); O&P SOURCE OTHER-STOOL
== END 2017-05-16 19:19 | disposition home or self-care (01) | DRG 392 ==
LOC: C.EDB 16:46 → C.MSW 20:50 → ENRESERV 21:20
PROVIDERS: ADMIT Internal Medicine; ATTEND Hospitalist
PROC: 0DBK8ZX Excision of Ascending Colon, Via Natural or Artificial Opening Endoscopic, Diagnostic (ICD-10-PCS; principal; 2017-05-15 15:31)
PROC: 0DBM8ZX Excision of Descending Colon, Via Natural or Artificial Opening Endoscopic, Diagnostic (ICD-10-PCS; principal; 2017-05-15 15:31)
PROC: 0DBL8ZX Excision of Transverse Colon, Via Natural or Artificial Opening Endoscopic, Diagnostic (ICD-10-PCS; principal; 2017-05-15 15:31)
PROC: 0DB98ZX Excision of Duodenum, Via Natural or Artificial Opening Endoscopic, Diagnostic (ICD-10-PCS; 2017-05-15 15:31)
DX: R10.84 Generalized abdominal pain (principal); R19.7 Diarrhea, unspecified; R11.2 Nausea with vomiting, unspecified; E27.8 Other specified disorders of adrenal gland; F17.200 Nicotine dependence, unspecified, uncomplicated; Z51.81 Encounter for therapeutic drug level monitoring; Z80.41 Family history of malignant neoplasm of ovary

== ENCOUNTER 2017-07-26 07:08 | Emergency (ER) | payer OTHER ==
[~2017-07-26] VITALS: Ht 172.7 cm; Wt 59.3 kg
[~2017-07-26 07:08] MED LIST: LDDP5 TD; OXYC7.5T62 PO; ULT50X PO
[2017-07-26 07:10] VITALS: TEMP 36.8; Ht 172.7 cm; Wt 59.3 kg
[2017-07-26] MEDS ORDERED: SODIUM CHLORIDE 0.9% 1000ML 1,000 ML IV STA (07:29)
[2017-07-26] MEDS ORDERED: ONDANSETRON INJ 2 MG/ML 2 ML VIAL IV STA (07:29)
[2017-07-26] MEDS ORDERED: MoRPHine SULFATE 4 MG/ML 1 ML CARP\\VIAL IV STA ×2 (07:29→08:40)
--- NOTE | 2017-07-26 07:37 | EMERGENCY ROOM VISIT NOTE ---
History First contact with patient: 07:14 Chief Complaint: GI ASSESSMENT Stated Complaint: BLOOD IN STOOL, LOWER ABD PAIN, UPSET STOMACH Nursing Triage Summary: pt reports she has a hx of IBS. pt reports lower abd pain and loose bowel movements x 3 so far today. pt reports that stool "had blood mixed in it." History of Present Illness The patient is a 22 year old female who presents to the Emergency Room via private vehicle with complaints of "blood in stool, lower abdominal pain, upset stomach". The patient states that she woke up this morning, developed lower abdominal pain, described as a band across the lower abdomen. She states that she had to move her bowels, and had 3 loose bowel movements of which had what she describes as spots of blood mixed in with the stool, which was also darker than normal for her. She also notes that she was providing a urine sample here today she noticed a little bit of vaginal bleeding. She denies any urinary symptoms, or vaginal discharge. There is no pelvic pain. She states that she was seen here recently over the summer, and was admitted for 6 days and during that time had a colonoscopy and endoscopy. She states these were found to be normal. She was then diagnosed with IBS. She denies any recent antibiotic use , chance of , or hormone use. She denies any vomiting. She does have a history of hemorrhoids, but notes these have resolved. Last menstrual cycle was 2 weeks ago. Review of Systems A complete 10-point Review of Systems was discussed with the patient, with pertinent positives and negatives listed in the History of Present Illness. All remaining Review of Systems questions can be considered negative unless otherwise specified. Past Medical/Surgical History Medical Problems: (1) Abdominal pain (2) Raynauds syndrome Family History FH: ovarian cancer Social History Smoking Status: Current Every Day Smoker Alcohol Use: none Marital Status: single Housing Status: lives with family Occupation Status: employed Current/Historical Medications Scheduled PRN Dicyclomine Hcl (Bentyl), 1 CAP PO QID PRN for GI Upset Miscellaneous Medications Fiber Laxative (Fiber Laxative) Physical Exam Vital Signs Date Time Temp Pulse Resp B/P (MAP) Pulse Ox O2 Delivery O2 Flow Rate FiO2 07/26/17 08:52 66 18 96/69 100 Room Air 07/26/17 07:55 76 07/26/17 07:49 100 Room Air 07/26/17 07:49 69 16 106/63 100 Room Air 07/26/17 07:10 36.8 83 16 118/78 98 Room Air Physical Exam VITAL SIGNS - Vital signs and nursing notes were reviewed. Afebrile, normotensive, non-tachycardic and is saturating well on room air 98%. GENERAL -22 -year-old female appearing stated age who is in no acute distress. Communicates well with provider and answers questions appropriately. SKIN - Without rashes. No petechial rashes. HEAD - NC/AT. EYES - Sclera anicteric. EARS - No deformities of external structures noted on gross examination bilaterally. NOSE - Midline and without cyanosis. No epistaxis or purulent drainage noted. MOUTH/OROPHARYNX - Without perioral cyanosis. LUNGS - Chest wall symmetric without accessory muscle use, intercostals retractions, or central cyanosis. Normal vesicular breath sounds CTA B/L. No wheezes, rales, or rhonchi appreciated. CARDIAC - RRR with S1/S2. No murmur, rubs, or gallops appreciated. ABDOMEN - Abdominal contour without pulsations or visible masses. BS normoactive all four quadrants. There is tenderness to palpation overlying the lower quadrants. No palpable masses, hepatosplenomegaly, or ascites noted. EXTREMITIES - No clubbing or peripheral cyanosis. No pretibial edema present. NEUROLOGIC - Cranial nerves II through XII grossly intact. PSYCH - A&O, and cooperates fully with examiner. Pt is very pleasant and interacts well with examiner. Medical Decision & Procedures Laboratory Results 07/26/17 07:42 Red Blood Count 4.62, Mean Corpuscular Volume 93.7, Mean Corpuscular Hemoglobin 31.6, Mean Corpuscular Hemoglobin Concent 33.7, Mean Platelet Volume 10.5, Neutrophils (%) (Auto) 60.6, Lymphocytes (%) (Auto) 23.2, Monocytes (%) (Auto) 12.1, Eosinophils (%) (Auto) 3.1, Basophils (%) (Auto) 0.5, Neutrophils # (Auto ) 3.98, Lymphocytes # (Auto) 1.52, Monocytes # (Auto) 0.79, Eosinophils # (Auto ) 0.20, Basophils # (Auto) 0.03 07/26/17 07:42 Test 07/26/17 07:33 07/26/17 07:42 Urine Color DK YELLOW Urine Appearance CLOUDY (CLEAR) Urine pH 5.5 (4.5-7.5) Urine Specific [place] 1.028 (1.000-1.030) Urine Protein NEG (NEG) Urine Glucose (UA) NEG (NEG) Urine Ketones NEG (NEG) Urine Occult Blood 3+ (NEG) Urine Nitrite NEG (NEG) Urine Bilirubin NEG (NEG) Urine Urobilinogen NEG (NEG) Urine Leukocyte Esterase TRACE (NEG) Urine WBC (Auto) 1-5 /hpf (0-5) Urine RBC (Auto) 0-4 /hpf (0-4) Urine Hyaline Casts (Auto) 1-5 /lpf (0-5) Urine Epithelial Cells (Auto) >30 /lpf (0-5) Urine Bacteria (Auto) 1+ (NEG) Urine Crystals CALCIUM OXALATE (NONE Urine Yeast (Auto) (NONE PRSENT) White Blood Count 6.55 K/uL (4.8-10.8) Red Blood Count 4.62 M/uL (4.2-5.4) Hemoglobin 14.6 g/dL (12.0-16.0) Hematocrit 43.3 % (37-47) Mean Corpuscular Volume 93.7 fL (80-100) Mean Corpuscular Hemoglobin 31.6 pg (25-34) Mean Corpuscular Hemoglobin Concent 33.7 g/dl (32-36) Platelet Count 243 K/uL (130-400) Mean Platelet Volume 10.5 fL (7.4-10.4) Neutrophils (%) (Auto) 60.6 % Lymphocytes (%) (Auto) 23.2 % Monocytes (%) (Auto) 12.1 % Eosinophils (%) (Auto) 3.1 % Basophils (%) (Auto) 0.5 % Neutrophils # (Auto) 3.98 K/uL (1.4-6.5) Lymphocytes # (Auto) 1.52 K/uL (1.2-3.4) Monocytes # (Auto) 0.79 K/uL (0.11-0.59) Eosinophils # (Auto) 0.20 K/uL (0-0.5) Basophils # (Auto) 0.03 K/uL (0-0.2) RDW Standard Deviation 44.2 fL (36.4-46.3) RDW Coefficient of Variation 12.9 % (11.5-14.5) Immature Granulocyte % (Auto) 0.5 % Immature Granulocyte # (Auto) 0.03 K/uL (0.00-0.02) Prothrombin Time 10.7 SECONDS (9.0-12.0) Prothromb Time International Ratio 1.0 (0.9-1.1) Activated Partial Thromboplast Time 28.0 SECONDS (21.0-31.0) Partial Thromboplastin Ratio 1.1 Anion Gap 5.0 mmol/L (3-11) Est Creatinine Clear Calc Drug Dose 142.4 ml/min Estimated GFR () > 150.0 Estimated GFR (Non- 131.9 BUN/Creatinine Ratio 12.0 (10-20) Calcium Level 9.4 mg/dl (8.5-10.1) Magnesium Level 2.0 mg/dl (1.8-2.4) Total Bilirubin 0.2 mg/dl (0.2-1) Aspartate Amino Transf (AST/SGOT) 9 U/L (15-37) Alanine Aminotransferase (ALT/SGPT) 12 U/L (12-78) Alkaline Phosphatase 59 U/L (45-117) Total Protein 7.6 gm/dl (6.4-8.2) Albumin 3.9 gm/dl (3.4-5.0) Globulin 3.7 gm/dl (2.5-4.0) Albumin/Globulin Ratio 1.1 (0.9-2) Lipase 149 U/L (73-393) Human Chorionic Gonadotropin, Qual NEG (NEG) Medications Administered Medications (Trade) Dose Ordered Sig/Get Route Start Time Stop Time Status Last Admin Dose Admin Sodium Chloride 1,000 ml @ 999 mls/hr Q1H1M STAT IV 07/26/17 07:29 07/26/17 08:29 DC 07/26/17 07:46 999 MLS/HR Morphine Sulfate (MoRPHine SULFATE INJ) 4 mg NOW STAT IV 07/26/17 07:29 07/26/17 07:32 DC 07/26/17 07:46 4 MG Ondansetron HCl (Zofran Inj) 4 mg NOW STAT IV 07/26/17 07:29 07/26/17 07:32 DC 07/26/17 07:46 4 MG Morphine Sulfate (MoRPHine SULFATE INJ) 4 mg NOW STAT IV 07/26/17 08:40 07/26/17 08:41 DC 07/26/17 08:51 4 MG ED Course Patient was seen in room A12. Thorough history and physical examination were performed Morphine and Zofran as well as normal saline were provided. Blood work was obtained. No emergent etiology identified. [place] stable for discharge Discharged home. Medical Decision The patient was seen and evaluated as above. Previous visits were extensively reviewed. She presents twice today with abdominal pain, blood in her stool, nausea, as well as vaginal bleeding. She denies chance of . She is nontoxic, and well-appearing on my examination. She has had 2 CT scans of the abdomen and pelvis with contrast in the past 13 months. She did have a stay here about 6 days back in the summer, and had a colonoscopy and endoscopy. These were performed on May 15, 2017. Samples of the colon were taken, these were also reviewed and found to be normal mucosa. By diagnoses of exclusion, she was diagnosed with IBS. Today she was offered a pelvic exam, and respectfully declined, noting that she had one that was normal 2 months ago. Benefits versus risk of obtaining CT scan was discussed with the patient, and the decision was made to refrain from such imaging modality, until the blood work results were back. She was given 4 mg of morphine, 4 mg of Zofran for pain and nausea. She was hydrated with a liter of normal saline. She was reevaluated and feeling much better. With her recent diagnosis, and her symptoms today as well as her appearance being well appearing and nontoxic I do believe that outpatient management is warranted. Case was discussed with the attending physician, and the decision was made to find her a prescription for Bentyl. CBC reveals no concern of leukocytosis or anemia. Coag normal. Patient's metabolic panel is essentially unremarkable for evidence of kidney or liver failure. Urine negative. Lipase negative. Urine reveals 3+ occult blood, trace leukocyte esterase, greater than 30 epithelial cells, and 1 + urine bacteria. Patient is not on her menses. With patient not being , and without leukocytosis I suspect this could be from her irritable bowel, but at this time the vaginal bleeding is not explained. I do recommend follow-up with her family doctor, return here with worsening. She was educated upon management, educated upon worrisome symptoms which to return, had questions by discharge, and was discharged home in condition. In evaluation treatment this patient following differential diagnoses were entertained: , IBS, intra-abdominal rupture, cyst, among others.. Impression Primary Impression: Abdominal pain Additional Impressions: Nausea Blood in stool Vaginal bleeding Departure Information Dispostion Home / Self-Care Condition GOOD Prescriptions Dicyclomine Hcl (BENTYL) 10 Mg Cap 1 CAP PO QID Y for GI Upset for 14 Days, #56 CAP 1 Refill Prov: Gary Bello PA-C 07/26/17 Referrals Sotero Bob PA-C (PCP) Patient Instructions My [facility] Additional Instructions You have been treated in the Emergency Department your Abdominal Pain. Laboratory results have ruled out any emergent causes for your abdominal pain which would warrant admission or surgery. You have been given pain medication here which would make illegal for you to drive today. You have been prescribed BENTYL for abdominal cramping. This is one tablet every 6 hours as needed for abdominal cramping. I started you on the low dose, and if this shows signs of improvement, please discuss with your family doctor as there are higher doses available may be used if appropriate. For pain control, you can use the following [id number] medicines (if >12 yo): - Regular strength (325mg/tab) Tylenol (acetaminophen) 1-2 tabs every 4-6 hours as needed. Do not exceed 12 tablets in a 24 hour period. Avoid taking more than 3 grams (3000 mg) of Tylenol per day. This includes any other sources of acetaminophen you may take on a regular basis. - Regular strength (200 mg/tab) Advil (ibuprofen) 1-2 tabs every 4-6 hours as needed. Do not exceed a dose of 3200 mg per day. Please use caution as this can cause GI upset. Drink plenty of water and stay well hydrated. As with any trip to the Emergency Department, you should follow-up with your Primary Care Provider from today's visit. Please call them later today to schedule follow-up. Return to the emergency department if your symptoms persist despite treatment plan outlined above or if the following symptoms occur: increased fevers, chills , worsening nausea/vomiting, more blood in your stool or urine. Please return with any new/concerning symptoms. Problem Qualifiers Primary Impression: Abdominal pain Abdominal location: lower abdomen, unspecified Qualified Codes: R10.30 - Lower abdominal pain, unspecified
[2017-07-26 07:46] LABS: MANUAL MICROSCOPIC REQUIRED? NO; REVIEW REQ? YES; URINE APPEARANCE CLOUDY (CLEAR); URINE BILIRUBIN NEG (NEG); URINE COLOR DK YELLOW; URINE EPITHELIAL CELL AUTO >30 /lpf (0-5); URINE NITRITE NEG (NEG); URINE PH 5.5 (4.5-7.5); URINE SPECIFIC GRAVITY 1.028 (1.000-1.030); UROBILINOGEN NEG (NEG); ZZUR CULT IF INDIC CLEAN CATCH YES
[2017-07-26 07:49] VITALS: O2SAT 100
[2017-07-26 07:55] LABS: BASO % 0.5 %; BASO ABS # 0.03 K/uL (0-0.2); COMPLETE YES; EOS % 3.1 %; HEMATOCRIT 43.3 % (37-47); IG% 0.5 %; LYMPH % 23.2 %; LYMPH ABS # 1.52 K/uL (1.2-3.4); MEAN CELL VOLUME 93.7 fL (80-100); MEAN CORPUSCULAR HEMOGLOBIN 31.6 pg (25-34); MEAN CORPUSCULAR HGB CONC 33.7 g/dl (32-36); MEAN PLATELET VOLUME 10.5 fL (7.4-10.4); MONO % 12.1 %; NEUT % 60.6 %; PLATELET COUNT 243 K/uL (130-400); RED BLOOD COUNT 4.62 M/uL (4.2-5.4); WHITE BLOOD COUNT 6.55 K/uL (4.8-10.8)
[2017-07-26 08:03] LABS: PARTIAL THROMBOPLASTIN RATIO 1.1; PROTHROMBIN TIME (PATIENT) 10.7 SECONDS (9.0-12.0)
[2017-07-26 08:14] LABS: ALT/SGPT 12 U/L (12-78); BLOOD UREA NITROGEN 7 mg/dl (7-18); CALCIUM 9.4 mg/dl (8.5-10.1); CARBON DIOXIDE 28 mmol/L (21-32); CHLORIDE 107 mmol/L (98-107); CREATININE 0.59 mg/dl (0.60-1.20); GLUCOSE 87 mg/dl (70-99); POTASSIUM 3.7 mmol/L (3.5-5.1); SODIUM 140 mmol/L (136-145)
[2017-07-26 08:17] LABS: ALB/GLOB RATIO 1.1 (0.9-2); ALKALINE PHOSPHATASE 59 U/L (45-117); AST/SGOT 9 U/L (15-37)
[2017-07-26 08:22] LABS: PREG INTERNAL NEGATIVE QC NEG CLEAR BACKGROUND; PREG INTERNAL POSITIVE QC POS CONTROL LINE
[2017-07-26] MEDS ORDERED: FIBER (08:35)
[2017-07-26] MEDS ORDERED: DICY10CA55 PO (08:50)
[2017-07-26 08:52] VITALS: BP 96/69; PULSE 66; O2SAT 100
== END 2017-07-26 09:00 | disposition home or self-care (01) ==
LOC: C.EDB 07:09 → C.EDA 09:00
DX: R10.30 Lower abdominal pain, unspecified (principal); R11.0 Nausea; K92.1 Melena; N93.8 Other specified abnormal uterine and vaginal bleeding; F17.200 Nicotine dependence, unspecified, uncomplicated

== ENCOUNTER 2017-12-27 13:14 | Emergency (ER) | payer OTHER ==
[~2017-12-27] VITALS: Ht 172.7 cm; Wt 60.7 kg
[~2017-12-27 13:14] MED LIST changes: +DICY10CA55 PO; +FIBER; -LDDP5 TD; -OXYC7.5T62 PO; -ULT50X PO
[2017-12-27 13:38] VITALS: TEMP 36.5; Ht 172.7 cm; Wt 60.7 kg
[2017-12-27] MEDS ORDERED: ONDANSETRON INJ 2 MG/ML 2 ML VIAL IV STA (15:24)
[2017-12-27] MEDS ORDERED: KETOROLAC TROMETHAMINE 30 MG/ML VIAL IV STA (15:24)
[2017-12-27 15:35] LABS: BASO % 0.3 %; BASO ABS # 0.03 K/uL (0-0.2); EOS % 0.8 %; EOS ABS # 0.08 K/uL (0-0.5); HEMATOCRIT 45.9 % (37-47); HEMOGLOBIN 16.1 g/dL (12.0-16.0); IG# 0.04 K/uL (0.00-0.02); LYMPH % 22.2 %; LYMPH ABS # 2.24 K/uL (1.2-3.4); MEAN CELL VOLUME 93.9 fL (80-100); MEAN CORPUSCULAR HEMOGLOBIN 32.9 pg (25-34); MEAN CORPUSCULAR HGB CONC 35.1 g/dl (32-36); MEAN PLATELET VOLUME 10.6 fL (7.4-10.4); MONO % 10.8 %; MONO ABS # 1.09 K/uL (0.11-0.59); NEUT % 65.5 %; NEUT ABS # 6.61 K/uL (1.4-6.5); PLATELET COUNT 251 K/uL (130-400); RED CELL DISTRIBUTION WIDTH CV 12.8 % (11.5-14.5); RED CELL DISTRIBUTION WIDTH SD 44.1 fL (36.4-46.3); WHITE BLOOD COUNT 10.09 K/uL (4.8-10.8)
[2017-12-27] MEDS ORDERED: IBUP-1050 PO (15:41)
[2017-12-27 15:44] LABS: ALBUMIN 4.2 gm/dl (3.4-5.0); CALCIUM 9.1 mg/dl (8.5-10.1); CREATININE 0.82 mg/dl (0.60-1.20); POTASSIUM 3.5 mmol/L (3.5-5.1)
[2017-12-27 15:47] LABS: TOTAL PROTEIN 8.2 gm/dl (6.4-8.2)
--- NOTE | 2017-12-27 16:26 | DIAGNOSTIC IMAGING REPORT ---
ULTRASOUND RIGHT UPPER QUADRANT ABDOMEN CLINICAL HISTORY: Right upper quadrant abdominal pain. COMPARISON STUDY: Abdominal CT dated 04/27/2017 and 06/09/2016. TECHNIQUE: Real-time, grayscale, and color flow sonography of the right upper quadrant of the abdomen was performed. Images are reviewed in the transverse and longitudinal planes. FINDINGS: Liver: The liver is normal in size and echotexture. There is no intrahepatic biliary ductal dilatation. The main portal vein is patent. Gallbladder: The gallbladder is contracted. Calcifications are again seen within or adjacent to the gallbladder wall. No shadowing gallstones are identified. There is no gallbladder wall thickening or pericholecystic fluid. A sonographic Benites's sign is reportedly absent. The common bile duct measures up to 0.2 cm in diameter. Pancreas: Visualized portions of the pancreatic head and body are normal in appearance. The splenic vein is patent. Right kidney: Survey images of the right kidney demonstrate normal size and echotexture. There is no hydronephrosis. Ascites: None. IMPRESSION: 1. The gallbladder is contracted and there is no sonographic evidence of acute cholecystitis. 2. Calcifications are again seen within or adjacent to the gallbladder wall. These have been present dating back to the [address] 3. There is no intra or extrahepatic biliary ductal dilatation. Electronically signed by: Rakan Felipe M.D. 12/27/2017 4:25 PM Dictated Date/Time: 12/27/2017 4:22 PM
[2017-12-27] MEDS ORDERED: MoRPHine SULFATE 4 MG/ML 1 ML CARP\\VIAL IV STA (17:39)
--- NOTE | 2017-12-27 17:42 | DIAGNOSTIC IMAGING REPORT ---
ABDOMEN AND PELVIS CT WITHOUT CONTRAST CT DOSE: 518.77 mGy.cm HISTORY: hematuria, R CVATTP/flank pain TECHNIQUE: Multiaxial CT images of the abdomen and pelvis were performed without the use of intravenous and oral contrast according to the standard department stone protocol. A dose lowering technique was utilized adhering to the principles of ALARA. COMPARISON STUDY: Abdomen and pelvis CT 04/27/2017. FINDINGS: The lung bases are clear. No pneumoperitoneum. No pneumatosis. No fractures within the visualized osseous structures. The unenhanced liver, spleen, adrenal glands, and pancreas are unremarkable. No retroperitoneal lymphadenopathy. The bladder, uterus, bilateral adnexa are within normal limits. There is a 3 mm nonobstructing stone within the left kidney. No right renal calculi. No perinephric fat stranding identified. No hydronephrosis. The ureters are normal in course and caliber. Calcifications in the deep pelvis favor phleboliths. No significant change in the abnormal appearance to the gallbladder which demonstrates gallbladder wall thickening and multiple round calcifications in either within or adjacent to the gallbladder wall. Trace pelvic free fluid. This is likely physiologic. Suboptimal evaluation for bowel pathology due to the lack of intravenous and oral contrast. However, there is no definite bowel wall thickening or obstruction. The appendix is not clearly visualized. No inflammatory changes at the cecal base to suggest acute appendicitis. IMPRESSION: 1. Left-sided nephrolithiasis. No ureteral stones. No hydronephrosis. 2. No definite bowel wall thickening or obstruction. 3. The appendix is not clearly identified. However, there are no inflammatory changes seen within the right lower quadrant. 4. No change in the abnormal appearance to the gallbladder as described on the previous studies dating back to 04/27/2017. Electronically signed by: Sarkis Garcia M.D. 12/27/2017 5:41 PM Dictated Date/Time: 12/27/2017 5:26 PM
[2017-12-27 18:26] VITALS: BP 116/63; PULSE 63; O2SAT 98
[2017-12-27] MEDS ORDERED: ONDA4TAB46 PO (18:30)
--- NOTE | 2017-12-27 18:31 | EMERGENCY ROOM VISIT NOTE ---
History Report prepared by [employer]: Alexandru Chavez Under the Supervision of: Dr. Teodoro Jackson M.D. First contact with patient: 14:37 Chief Complaint: ABDOMINAL PAIN Stated Complaint: ABDOMINAL/BACK PAIN, LIGH HEADED, THROWING UP Nursing Triage Summary: pt reports diffuse abdominal pain X 1 month that radiates into back , vomitting usually 2 time daily History of Present Illness The patient is a 22 year old white female who presents to the ED with a cc of intermittent vomiting beginning a month ago. Patient reports right sided flank pain radiating into her right abdomen intermittently over the past month as well. Pain is most severe in the abdomen. Was seen by PCP earlier today and was referred to the ED due to increased vomiting. She has vomited three times today. Pain is worsened with vomiting. Negative vaginal bleeding or discharge. No changes to bowel or bladder function. Last normal bowel movement was two days ago (this is normal for her). LNMP was three weeks ago. No recent travel or antibiotic use. Source of History: patient Onset: A month ago Symptom Intensity: three episodes today Quality: other (vomiting) Timing: intermittent Associated Symptoms: + abdominal pain (radiating into right side) Note: Negative: vaginal bleeding or discharge. Positive: right flank pain. Review of Systems See HPI for pertinent positives and negatives. A total of ten systems were reviewed and were otherwise negative. Past Medical & Surgical Medical Problems: (1) Abdominal pain (2) Raynauds syndrome Family History FH: ovarian cancer Social History Smoking Status: Current Every Day Smoker Alcohol Use: none Marital Status: single Housing Status: lives with family Occupation Status: employed Current/Historical Medications Scheduled Ibuprofen (Advil), 400 MG PO PRN UD Allergies Coded Allergies: Prednisone (Verified Allergy, Severe, HIVES, 07/26/17) Amoxicillin (Verified Allergy, Intermediate, hives, 07/26/17) Penicillins (Verified Allergy, Intermediate, HIVES, 07/26/17) Ciprofloxacin (Verified Allergy, Unknown, unsure had a reaction as an , 07/26/17) Clavulanic Acid (Verified Allergy, Unknown, Hives/Rash, 07/26/17) Physical Exam Vital Signs Date Time Temp Pulse Resp B/P (MAP) Pulse Ox O2 Delivery O2 Flow Rate FiO2 12/27/17 17:41 67 12/27/17 17:30 71 16 119/69 100 Room Air 12/27/17 15:31 72 18 118/70 99 Room Air 12/27/17 13:38 36.5 97 20 106/70 99 Room Air Physical Exam GENERAL: Awake, alert, well-appearing, NAD HENT: Normocephalic, atraumatic. EYES: Normal conjunctiva. Sclera non-icteric. NECK: Supple. No nuchal rigidity. FROM. RESPIRATORY: CTAB, no rhonchi, wheezing, crackles CARDIAC: RRR, no MRG ABDOMEN: Soft, BS+. Mild right CVA TTP. RUQ and suprapubic TTP. Negative obturators or psoas. MSK: No chest wall TTP, no LE edema NEURO: GCS 15, CN 2-12 intact, moves all 4s on command SKIN: No rash or jaundice noted. Medical Decision & Procedures ER Provider Diagnostic Interpretation: Radiology results as stated below per my review and radiologist interpretation: ULTRASOUND RIGHT UPPER QUADRANT ABDOMEN FINDINGS: Liver: The liver is normal in size and echotexture. There is no intrahepatic biliary ductal dilatation. The main portal vein is patent. Gallbladder: The gallbladder is contracted. Calcifications are again seen within or adjacent to the gallbladder wall. No shadowing gallstones are identified. There is no gallbladder wall thickening or pericholecystic fluid. A sonographic Benites's sign is reportedly absent. The common bile duct measures up to 0.2 cm in diameter. Pancreas: Visualized portions of the pancreatic head and body are normal in appearance. The splenic vein is patent. Right kidney: Survey images of the right kidney demonstrate normal size and echotexture. There is no hydronephrosis. Ascites: None. IMPRESSION: 1. The gallbladder is contracted and there is no sonographic evidence of acute cholecystitis. 2. Calcifications are again seen within or adjacent to the gallbladder wall. These have been present dating back to the [address] 3. There is no intra or extrahepatic biliary ductal dilatation. Electronically signed by: Rakan Felipe M.D. 12/27/2017 4:25 PM A[address]OMEN AND PELVIS CT WITHOUT CONTRAST FINDINGS: The lung bases are clear. No pneumoperitoneum. No pneumatosis. No fractures within the visualized osseous structures. The unenhanced liver, spleen, adrenal glands, and pancreas are unremarkable. No retroperitoneal lymphadenopathy. The bladder, uterus, bilateral adnexa are within normal limits. There is a 3 mm nonobstructing stone within the left kidney. No right renal calculi. No perinephric fat stranding identified. No hydronephrosis. The ureters are normal in course and caliber. Calcifications in the deep pelvis favor phleboliths. No significant change in the abnormal appearance to the gallbladder which demonstrates gallbladder wall thickening and multiple round calcifications in either within or adjacent to the gallbladder wall. Trace pelvic free fluid. This is likely physiologic. Suboptimal evaluation for bowel pathology due to the lack of intravenous and oral contrast. However, there is no definite bowel wall thickening or obstruction. The appendix is not clearly visualized. No inflammatory changes at the cecal base to suggest acute appendicitis. IMPRESSION: 1. Left-sided nephrolithiasis. No ureteral stones. No hydronephrosis. 2. No definite bowel wall thickening or obstruction. 3. The appendix is not clearly identified. However, there are no inflammatory changes seen within the right lower quadrant. 4. No change in the abnormal appearance to the gallbladder as described on the previous studies dating back to 04/27/2017. Electronically signed by: Sarkis Garcia M.D. 12/27/2017 5:41 PM Laboratory Results 12/27/17 14:50 Red Blood Count 4.89, Mean Corpuscular Volume 93.9, Mean Corpuscular Hemoglobin 32.9, Mean Corpuscular Hemoglobin Concent 35.1, Mean Platelet Volume 10.6, Neutrophils (%) (Auto) 65.5, Lymphocytes (%) (Auto) 22.2, Monocytes (%) (Auto) 10.8, Eosinophils (%) (Auto) 0.8, Basophils (%) (Auto) 0.3, Neutrophils # (Auto ) 6.61, Lymphocytes # (Auto) 2.24, Monocytes # (Auto) 1.09, Eosinophils # (Auto ) 0.08, Basophils # (Auto) 0.03 12/27/17 14:50 Test 12/27/17 14:50 12/27/17 15:30 White Blood Count 10.09 K/uL (4.8-10.8) Red Blood Count 4.89 M/uL (4.2-5.4) Hemoglobin 16.1 g/dL (12.0-16.0) Hematocrit 45.9 % (37-47) Mean Corpuscular Volume 93.9 fL (80-100) Mean Corpuscular Hemoglobin 32.9 pg (25-34) Mean Corpuscular Hemoglobin Concent 35.1 g/dl (32-36) Platelet Count 251 K/uL (130-400) Mean Platelet Volume 10.6 fL (7.4-10.4) Neutrophils (%) (Auto) 65.5 % Lymphocytes (%) (Auto) 22.2 % Monocytes (%) (Auto) 10.8 % Eosinophils (%) (Auto) 0.8 % Basophils (%) (Auto) 0.3 % Neutrophils # (Auto) 6.61 K/uL (1.4-6.5) Lymphocytes # (Auto) 2.24 K/uL (1.2-3.4) Monocytes # (Auto) 1.09 K/uL (0.11-0.59) Eosinophils # (Auto) 0.08 K/uL (0-0.5) Basophils # (Auto) 0.03 K/uL (0-0.2) RDW Standard Deviation 44.1 fL (36.4-46.3) RDW Coefficient of Variation 12.8 % (11.5-14.5) Immature Granulocyte % (Auto) 0.4 % Immature Granulocyte # (Auto) 0.04 K/uL (0.00-0.02) Anion Gap 6.0 mmol/L (3-11) Est Creatinine Clear Calc Drug Dose 104.9 ml/min Estimated GFR () 119.4 Estimated GFR (Non- 103.0 BUN/Creatinine Ratio 12.4 (10-20) Calcium Level 9.1 mg/dl (8.5-10.1) Magnesium Level 2.0 mg/dl (1.8-2.4) Total Bilirubin 0.4 mg/dl (0.2-1) Direct Bilirubin 0.1 mg/dl (0-0.2) Aspartate Amino Transf (AST/SGOT) 10 U/L (15-37) Alanine Aminotransferase (ALT/SGPT) 16 U/L (12-78) Alkaline Phosphatase 59 U/L (45-117) Total Protein 8.2 gm/dl (6.4-8.2) Albumin 4.2 gm/dl (3.4-5.0) Lipase 156 U/L (73-393) Urine Color YELLOW Urine Appearance CLOUDY (CLEAR) Urine pH 7.5 (4.5-7.5) Urine Specific [place] 1.017 (1.000-1.030) Urine Protein NEG (NEG) Urine Glucose (UA) NEG (NEG) Urine Ketones NEG (NEG) Urine Occult Blood NEG (NEG) Urine Nitrite NEG (NEG) Urine Bilirubin NEG (NEG) Urine Urobilinogen NEG (NEG) Urine Leukocyte Esterase NEG (NEG) Urine WBC (Auto) 1-5 /hpf (0-5) Urine RBC (Auto) 5-10 /hpf (0-4) Urine Hyaline Casts (Auto) 0 /lpf (0-5) Urine Epithelial Cells (Auto) >30 /lpf (0-5) Urine Bacteria (Auto) 1+ (NEG) Urine Test NEG (NEG) Laboratory results reviewed by me Medications Administered Medications (Trade) Dose Ordered Sig/Get Route Start Time Stop Time Status Last Admin Dose Admin Ondansetron HCl (Zofran Inj) 4 mg NOW STAT IV 12/27/17 15:24 12/27/17 15:26 DC 12/27/17 15:30 4 MG Ketorolac Tromethamine (Toradol Inj) 30 mg NOW STAT IV 12/27/17 15:24 12/27/17 15:26 DC 12/27/17 15:31 30 MG Morphine Sulfate (MoRPHine SULFATE INJ) 4 mg NOW STAT IV 12/27/17 17:39 12/27/17 17:40 DC 12/27/17 17:44 4 MG ED Course 1515: The patient was evaluated in room C5. A complete history and physical exam was performed. 1751: I reevaluated the patient. Discussed results and discharge instructions: she verbalized understanding and agreement. The patient is ready for discharge. Medical Decision The patient is a 22 year old white female who presents to the ED with a cc of intermittent vomiting beginning a month ago. Differential diagnosis: Etiologies such as gastroenteritis, food borne illness, infections, appendicitis , diverticulitis, inflammatory bowel disease, obstruction, GI bleed, biliary pathology, as well as others were entertained. Patient was seen and evaluated the bedside. Patient has had some intermittent issues with vomiting. Patient states that she vomited 3 times today but none yesterday. Patient denies any recent travel or antibiotic use. Patient was seen at her primary care physician's office where she had some blood work completed and was pending a scheduled gallbladder ultrasound. On exam patient does have some mild right flank tenderness to palpation. Patient has some right upper quadrant tenderness but no right lower quadrant. Patient had a negative obturator's and psoas sign. Patient did have blood work completed along with a gallbladder ultrasound. Gallbladder appears contracted no signs of acute cholecystitis. CBD was normal. Patient had a normal white blood cell count. Patient's LFTs and lipase within normal limits. Urinalysis likely contaminated given the epithelial cells however I did discuss with the patient that if she did grow out something she would be called and placed on antibiotics. Patient denies any dysuria. Patient did have a CT of the abdomen pelvis completed given the blood in the urine. Patient does have nonobstructing kidney stones in the left kidney but no ureterolithiasis. Will not treat for kidney stones as they are not currently traveling down the ureter. Patient was told that she does have these and that if she does have persistent symptoms that this may be related to passing kidney stones however none were noted on the right side. The appendix was not well evaluated on CT given the lack of IV and oral contrast but no inflammatory changes and again the patient has no right lower quadrant tenderness nor obturators or psoas signs. Upon reassessment the patient was feeling improved. No vomiting here. Patient was told to follow with her PCP could return as needed. Patient was deemed suitable for outpatient follow-up and discharge. Patient was given strict follow-up, discharge, and return precautions. All questions were answered. Patient was deemed suitable for outpatient follow-up at this time. Patient agreed with the plan of care and was safely discharged home. Medication Reconcilliation Current Medication List: was personally reviewed by me Blood Pressure Screening Patient's blood pressure: Normal blood pressure Blood pressure disposition: Did not require urgent referral Impression Primary Impression: Abdominal pain Additional Impressions: Vomiting Left nephrolithiasis Scribe Attestation The scribe's documentation has been prepared under my direction and personally reviewed by me in its entirety. I confirm that the note above accurately reflects all work, treatment, procedures, and medical decision making performed by me. Departure Information Dispostion Home / Self-Care Prescriptions Ondansetron Hcl (ZOFRAN) 4 Mg Tab 4 MG PO Q8H Y for Nausea, #12 TAB Prov: Teodoro Jackson M.D. 12/27/17 Referrals Sotero Bob PA-C (PCP) Patient Instructions Abdominal Pain, ED Diet [place], ED Nausea Vomiting, [facility] Additional Instructions Please return to the emergency department if you have worsening or recurrent symptoms not amenable to at-home treatment. Please call for a follow-up appointment with her primary care physician. Please take your medications as prescribed. If you have other concerns and/or complaints please feel free to also call your primary care physician's office or return the ED for further evaluation, management, and treatment. You were found to have an elevated blood pressure today (>120 sytolic or >90 diastolic). Per medicare guidelines, you need to follow up with this blood pressure screening with your Primary Care Physician (PCP). For a new PCP call [phone]. You received narcotic or benzodiazepene medication while in the emergency room today. This is an addictive medication that may cause drowziness as well as constipation. Do not drive, operate heavy machinery, or drink alcohol under the influence of this medication. You may take 600 mg Ibuprofen every 6 hours as needed for pain with food for no more than 2 consecutive days. You may take tylenol 1000 mg every 6 hours as needed for pain. You may take motrin and tylenol separately or at the same time. Take your medications as prescribed. You have been examined and treated today on an emergency basis only. This is not a substitute for, or an effort to provide, complete comprehensive medical care. It is impossible to recognize and treat all injuries or illnesses in a single emergency department visit. It is therefore important that you follow up closely with [facility], your PCP, and/or your specialist(s). Call as soon as possible for an appointment. Thank you for your time and consideration. I look forward to speaking with you again soon. Please don't hesitate to call us if you have any questions. Problem Qualifiers Primary Impression: Abdominal pain Abdominal location: generalized Qualified Codes: R10.84 - Generalized abdominal pain Additional Impressions: Vomiting Vomiting type: unspecified Vomiting Intractability: non-intractable Nausea presence: with nausea Qualified Codes: R11.2 - Nausea with vomiting, unspecified
== END 2017-12-27 18:44 | disposition home or self-care (01) ==
LOC: C.EDB 13:16 → C.EDC 18:44
DX: R10.84 Generalized abdominal pain (principal); R11.2 Nausea with vomiting, unspecified; N20.0 Calculus of kidney; R10.811 Right upper quadrant abdominal tenderness; I73.00 Raynaud's syndrome without gangrene; F17.200 Nicotine dependence, unspecified, uncomplicated; Z80.41 Family history of malignant neoplasm of ovary; Z88.8 Allergy status to other drugs, medicaments and biological substances; Z88.0 Allergy status to penicillin; Z88.1 Allergy status to other antibiotic agents

== ENCOUNTER 2020-01-13 07:00 | Inpatient (IN) ==
--- NOTE | 2020-01-09 14:54 | History and Physical Report ---
DATE OF ADMISSION: 01/13/2020 REASON FOR ADMISSION: Scheduled primary section for breech presentation. BRIEF HISTORY: Paty is a 24-year-old , at 39 weeks 3 days gestational age. The patient presents for a primary section for breech presentation. The patient underwent an external cephalic version, which was unsuccessful on 01/08. The patient has been reporting mild contractions and has been denying any vaginal bleeding or leakage of fluid, and has had good movement. has been complicated by history of high-grade Pap smear and was noncompliant for colposcopy as well as persistent breech presentation as noted above. OBSTETRIC COURSE: The patient presented for care at approximately 8 weeks' gestational age. She has been normotensive throughout. She has had negative glucosuria and negative proteinuria. OBSTETRICAL HISTORY: This is the patient's first . GYNECOLOGIC HISTORY: The patient has a history of abnormal Pap smear with HSIL Pap noted recently and was noncompliant for colposcopy. The patient will need a Pap. PAST MEDICAL HISTORY: Has been unremarkable. PAST SURGICAL HISTORY: Includes wisdom teeth. SOCIAL HISTORY: The patient denies tobacco, alcohol or illicit drug use during . The patient was a tobacco user prior to . FAMILY HISTORY: Noncontributory to current admission. PHYSICAL EXAMINATION: VITAL SIGNS: At last visit, blood pressure 100/84. GENERAL: The patient was well appearing, in no acute distress, alert and oriented x3. CARDIAC: Regular rate and rhythm. LUNGS: Clear to auscultation bilaterally. ABDOMEN: Soft, nontender, gravid with uterus measuring consistent with gestational age. EXTREMITIES: Lower extremities showed mild edema, was otherwise unremarkable. The patient was noted to have persistent breech presentation as documented by ultrasound. ASSESSMENT: Paty is a 24-year-old 1, para 0, currently admitted for a primary section for breech presentation at 39 weeks 3 days gestational age. PLAN: 1. Fetus reactive NST today. 2. Delivery plan: The patient is scheduled for a section as noted above. Labor precautions were discussed. 3. Vitals stable today. 4. hemorrhage risk considered low risk. 5. GBS negative.
[~2020-01-13 07:00] MED LIST changes: +CEFAZOLIN 2,000 MG in SYRINGE 0 ML IV SCH; +CITRIC ACID/SODIUM CITRATE 15 ML UDC PO SCH; -DICY10CA55 PO; -FIBER; +LACTATED RINGER'S 1,000 ML IV SCH
[2020-01-13] MEDS ORDERED: SODIUM CHLORIDE 0.9% 250 ML IV PRN (07:04)
--- NOTE | 2020-01-13 07:18 | History & Physical Bridge Note ---
Date of Service January 13, 2020 History & Physical Bridge Note I have examined the patient, reviewed the History & Physical and in the interval since the performance of the History & Physical I have noted the following changes of clinical significance: no changes noted
[2020-01-13 07:29] LABS: Basophils # (auto) 0.02 K/uL (0-0.2); Basophils % (auto) 0.2 %; Eosinophils # (auto) 0.09 K/uL (0-0.5); Eosinophils % (auto) 1.1 %; Hematocrit (blood only) 38.8 % (37-47); Hemoglobin 13.1 g/dL (12.0-16.0); Immature Granulocytes # (auto) 0.07 K/uL (0.00-0.02); Immature Granulocytes % (auto) 0.8 %; Lymphocytes # (auto) 1.95 K/uL (1.2-3.4); Lymphocytes % (auto) 22.8 %; Mean Corpuscular Hemoglobin 32.4 pg (25-34); Mean Platelet Volume 11.2 fL (7.4-10.4); Monocytes # (auto) 0.85 K/uL (0.11-0.59); Monocytes % (auto) 9.9 %; Neutrophils # (auto) 5.58 K/uL (1.4-6.5); Neutrophils % (auto) 65.2 %; Platelet Count 188 K/uL (130-400); RDW Coefficient of Variation 13.1 % (11.5-14.5); RDW Standard Deviation 45.8 fL (36.4-46.3); Red Blood Count 4.04 M/uL (4.2-5.4); White Blood Count 8.56 K/uL (4.8-10.8)
[2020-01-13 07:39] LABS: Mean Corpuscular Hgb Conc 33.8 g/dL (32-36)
[2020-01-13] MEDS ORDERED: MoRPHine SULFATE PF 1 MG/ML 10 ML AMP/VIAL ONE (07:43)
[2020-01-13] MEDS ORDERED: fentaNYL citrate 100 MCG/2 ML VIAL ONE (07:43)
--- NOTE | 2020-01-13 08:11 | Anesthesiology Consultation ---
Date of Service January 13, 2020 Assessment & Plan Chart Review Chart Review: Acceptable Risk for Surgery and Patient NOT seen in Pre Admission Testing Consults Requested none ASA ASA2 Proposed Anesthesia Anesthesia Type: MAC Spinal Risk / Benefits Reviewed With: PT / POA / Parent / Guardian, Accepts Plan and Informed Consent Obtained History Surgery Operation Date: 01/13/20 08:55 Proposed Procedures p Section - Yesenia Heaton MD, FACOG Height/Weight Height: 5 ft 8.5 in Weight: 80.286 kg Allergies Allergy/AdvReac Type Severity Reaction Status Date / Time prednisone Allergy Severe HIVES Verified 01/08/20 15:10 amoxicillin Allergy Intermediate hives Verified 01/08/20 15:10 Penicillins Allergy Intermediate HIVES Verified 01/08/20 15:10 Cipro Allergy Unknown unsure had Verified 07/26/17 08:36 a reaction as an infant ciprofloxacin Allergy Unknown unsure had Verified 01/08/20 15:10 a reaction as an infant clavulanic acid Allergy Unknown Hives/Rash Verified 01/08/20 15:10 Medications Home Medications Medication Instructions Recorded Confirmed Last Taken PNV cmb#95-ferrous fumarate-FA 1 tab PO DAILY 06/04/19 01/13/20 01/12/20 17:00 [] Active Medications Generic Name Dose Route Start Last Admin Trade Name Freq PRN Reason Stop Dose Admin Lactated Ringer's 1,000 mls @ 999 mls/hr 01/13/20 05:00 01/13/20 07:38 Lr IV 02/12/20 04:59 999 mls/hr .Q1H1M ISAIAH Administration NPO Date Last Intake of Fluids: 01/12/20 Time Last Intake of Fluids: 23:45 Date Last Intake of Solids: 01/12/20 Time Last Intake of Solids: 23:45 Past Medical History Medical History (Updated 01/13/20 @ 08:11 by Sarkis Streeter MD) Irritable bowel syndrome Raynauds syndrome UTI (urinary tract infection) (Inactive) Exercise / Class Metabolic Activity II 4-5 Yardwork/Stairs/Walk up hill Past Family History Family History Unknown Cervical cancer Grandmother (Maternal) Hypertension Grandfather (Maternal) Kidney disease Other No pertinent family history in first degree relatives Past Anesthesia History No Hx of Anesthesia Complications and No Family Hx of Anesthesia Complications History of PONV No Hx of PONV and No Hx of Motion Sickness Social History Smoking Status: Former smoker tobacco type: cigarettes Hx Alcohol Use: No Hx Substance Use: No substance use type: does not use Review of Systems no chest pain or sob Physical Exam Vital Signs Last Vital Signs Pulse 93 H 01/13/20 08:07 Resp 18 01/13/20 07:40 BP 120/59 L 01/13/20 07:40 Pulse Ox 100 01/13/20 08:07 ENMT Mouth: no TMJ abnormality Thyromental Distance: > or= 3.5 Finger Breadths Mallampati Class: II Neck normal visual inspection Respiratory normal respiratory effort Auscultation: lungs clear to auscultation bilaterally Cardiovascular Rate/Rhythm: regular rate and regular rhythm Musculoskeletal Spine: normal cervical ROM Neurologic moves all extremities Psychiatric Orientation: alert and oriented x 3 Testing Laboratory Results 01/13/20 07:08 Blood Type A Positive 01/13/20 07:08 Antibody Screen NEGATIVE 01/13/20 07:08
[2020-01-13] MEDS ORDERED: OXYTOCIN 10 UNITS/ML VIAL ONE (08:25)
[2020-01-13] MEDS ORDERED: PHENYLEPHRINE 100MCG/ML 5ML SYR ONE (08:25)
[2020-01-13] MEDS ORDERED: NALBUPHINE HCL INJ 10 MG/ML AMP IV PRN (08:27)
[2020-01-13] MEDS ORDERED: NALOXONE HCL 0.4 MG/1 ML VIAL/CARP IV PRN (08:27)
[2020-01-13] MEDS ORDERED: LACTATED RINGER'S 500 ML IV PRN (08:27)
[2020-01-13] MEDS ORDERED: ePHEDrine sulfate 50 MG/ML AMP IV PRN (08:27)
[2020-01-13] MEDS ORDERED: NALOXONE HCL 0.08 MG in SYRINGE 1.8 ML IV PRN (08:27)
[2020-01-13] MEDS ORDERED: ONDANSETRON INJ 2 MG/ML 2 ML VIAL IV PRN (08:27)
[2020-01-13] MEDS ORDERED: MoRPHine SULFATE PF 1 MG/ML 10 ML AMP/VIAL INT SPINAL ONE (08:27)
[2020-01-13] MEDS ORDERED: DiphenhydrAMINE HCL 50 MG/ML VIAL IV PRN (08:27)
[2020-01-13] MEDS ORDERED: NALOXONE HCL 1 MG in SODIUM CHLORIDE 0.9% 1000ML 1,000 ML IV PRN (08:27)
[2020-01-13] MEDS ORDERED: DC INTRASPINAL MORPHINE SCH (08:30)
[2020-01-13] MEDS ORDERED: SODIUM CHLORIDE 0.9% 1000ML 1,000 ML IV SCH (08:30)
[2020-01-13] MEDS ORDERED: NO NARCOTICS OR SEDATIVES SCH (08:30)
[2020-01-13] MEDS ORDERED: ONDANSETRON INJ 2 MG/ML 2 ML VIAL ONE (08:50)
--- NOTE | 2020-01-13 09:19 | Post Operative Brief Note ---
PG Immediate Post Op with CF Date of Surgery January 13, 2020 Pre & Post Diagnosis Operation Date: 01/13/20 08:55 Pre-Op Diagnosis: primary section for breech presentation Post-Op Diagnosis: primary section for breech presentation I identified the patient and participated in the time-out.: Yes Procedure Operation Date: 01/13/20 08:55 Actual Procedures p Section with delivery of live male child at 0845 - Yesenia Martínez MD, FACOG Surgeon Yesenia Heaton MD, FACOG Supervisor Vendor Quality Dr. Ana Rosa Elizalde Estimated Blood Loss 500 Findings Consistent with Post-Op Diagnosis Specimens Specimen Description: 1. Placenta: HOLD 2. Cord Blood Drains Morrison Catheter
[2020-01-13] MEDS: KETOROLAC 30 MG/ML VIAL IV PRN ×2 (11:13→18:51)
--- NOTE | 2020-01-13 11:28 | Anesthesiology Progress Note ---
Date of Service January 13, 2020 Anesthesia Post Procedure Vital Signs Vital Signs: Temp Pulse Resp BP Pulse Ox 01/13/20 11:23 54 L 99 01/13/20 11:21 64 114/76 01/13/20 11:18 58 L 99 01/13/20 11:13 72 98 01/13/20 11:12 65 112/58 L 01/13/20 11:08 67 99 01/13/20 11:03 55 L 99 01/13/20 11:01 53 L 116/59 L 01/13/20 10:58 59 L 98 01/13/20 10:53 58 L 98 01/13/20 10:51 50 L 110/59 L 01/13/20 10:48 60 98 01/13/20 10:43 65 98 01/13/20 10:41 55 L 109/62 01/13/20 10:38 63 97 01/13/20 10:33 63 97 01/13/20 10:30 59 L 106/58 L 01/13/20 10:28 64 97 01/13/20 10:23 78 98 01/13/20 10:22 61 108/64 01/13/20 10:18 66 98 01/13/20 10:13 60 98 01/13/20 10:11 51 L 99/50 L 01/13/20 10:08 60 97 01/13/20 10:03 62 97 01/13/20 10:01 62 107/69 01/13/20 09:58 59 L 98 01/13/20 09:53 73 99 01/13/20 09:51 65 104/58 L 01/13/20 09:48 61 98 01/13/20 09:43 72 95 01/13/20 09:42 67 94 01/13/20 09:38 62 98 01/13/20 09:33 68 98 01/13/20 09:32 36.3 C L 76 18 106/58 L 99 01/13/20 09:28 60 98 01/13/20 09:23 64 98 01/13/20 09:22 61 111/62 01/13/20 08:07 93 H 100 01/13/20 08:02 88 97 01/13/20 07:57 93 H 96 01/13/20 07:52 87 96 01/13/20 07:47 87 96 01/13/20 07:42 80 96 01/13/20 07:40 85 18 120/59 L 96 01/13/20 07:37 85 96 01/13/20 07:07 75 120/59 L Transfer of Care Handoff Completed per policy Notes Mental Status: alert / awake / arousable Patient Amnestic to Procedure: Yes Nausea / Vomiting: adequately controlled Pain: adequately controlled Airway Patency, RR, SpO2: stable & adequate BP & HR: stable & adequate Hydration State: stable & adequate Neuraxial Anesthesia: was administered and sensory block is resolving Anesthetic Complications: no major complications apparent and Pt Satisfied with anesthetic care
[2020-01-13] MEDS ORDERED: BENZOCAINE 20% AER SPR 82.5 GM CAN EXT PRN (11:54)
[2020-01-13] MEDS ORDERED: DIPHTHERIA/TETANUS/PERTUSSIS 0.5 ML SYR/VIAL IM ONE (11:54)
[2020-01-13] MEDS ORDERED: SUPERCREAM 0.870% 15 GM JAR EXT PRN (11:54)
--- NOTE | 2020-01-13 12:00 | Operative Report (OR) ---
DATE OF OPERATION: 01/13/2020 SURGEON: Yesenia Martínez MD. ACQUISITION LEAD: Dr. Ana Rosa Ramirez. PREOPERATIVE DIAGNOSES: Intrauterine at 39 weeks with persistent breech presentation, failed external version. POSTOPERATIVE DIAGNOSES: Intrauterine at 39 weeks with persistent breech presentation, failed external version; delivery of a viable male , 7 pounds 13 ounces, Apgars 9 and 9. PROCEDURE: Primary low transverse section. HISTORY: The patient is a 24-year-old G1, P0 white female who presents at 39 weeks and 3 days for a primary section. She had an attempted external version for persistent breech presentation, but this was unsuccessful. She is now scheduled for primary low transverse section. She understands the risks of procedure and is willing to proceed. All her questions were answered prior to proceeding with the surgery. GROSS FINDINGS: Uterus is gravid and consistent with a term in size. Bilateral ovaries and fallopian tubes are grossly normal as did the uterine cavity. There is no evidence of a septum or other abnormality inside the uterine cavity. DESCRIPTION OF PROCEDURE: After the patient received adequate subarachnoid block, she was prepped and draped in usual sterile fashion. A low transverse skin incision was made with a scalpel and carried to the fascia with the same scalpel. The fascial incision was then extended with Clements scissors. The edges were grasped with Jef clamps and the underlying rectus muscles bluntly and sharply dissected off of the overlying fascia. The peritoneum was then elevated and entered sharply. The bladder was then taken down off the anterior surface of the uterus and placed behind the bladder blade. Lower uterine segment was entered with the scalpel and extended transversely. The was delivered from the huyen breech presentation with moderate fundal pressure. After the legs were delivered, both shoulders were reduced and the head delivered easily. There was spontaneous crying and the was moving all 4 limbs. The cord was then clamped and cut, and the was handed off to Dr. Villanueva who was in attendance as newspaper publisher. The placenta was expressed intact with a 3-vessel cord. The uterus exteriorized and covered with a clean lap sponge. Dilute Pitocin was used to reduce bleeding and to contract the uterus. After the uterine cavity was explored and found to be free of any placental tissue or membranes, the uterus was closed in 2 layers in a running locking imbricating fashion with 0 Monocryl. Bleeding at the incision site was excellent. Posterior cul-de-sac was irrigated with normal saline as was the anterior cul-de-sac. Incision was examined once more, some minor bleeding was controlled with the Bovie. The uterus was placed back inside the abdominal cavity and hemostasis continued to be excellent. The gutters were explored and found to be free of any placental tissue, clot or fluid. The rectus muscles were brought together in the midline with individual stitches of 0 Monocryl. The fascia was closed in a running fashion with 0 Vicryl. After irrigating the fascia, the adipose layer and the skin edges were reapproximated using a subcuticular stitch of 4-0 Vicryl. Urine was clear at the end of the case. Mother and infant were doing well. I attest to the content of the Intraoperative Record and any orders documented therein. Any exception s are noted below.
[2020-01-13] MEDS: HYDROmorphone INJ 0.5 MG/0.5 ML SYR IV PRN ×3 (12:29→22:01)
[2020-01-13] MEDS: OXYTOCIN 20 UNITS in LACTATED RINGER'S 1,000 ML IV SCH ×2 (12:32→20:56)
[2020-01-13] MEDS: SIMETHICONE 80 MG CHEW PO SCH ×3 (13:00→22:01)
[2020-01-14] MEDS: KETOROLAC 30 MG/ML VIAL IV PRN (01:34)
[2020-01-14] MEDS ORDERED: ZOLPIDEM TARTRATE 5 MG TAB PO PRN (02:28)
[2020-01-14] MEDS ORDERED: ONDANSETRON INJ 2 MG/ML 2 ML VIAL IV PRN (02:29)
[2020-01-14] MEDS: OXYCODONE/ACETAMINOPHEN 5mg/325mg TAB PO PRN ×5 (04:15→23:22)
--- NOTE | 2020-01-14 06:14 | Obstetrical Progress Note ---
Date of Service <Ana Rosa Ramirez - Last Filed: 01/14/20 06:39> January 14, 2020 Assessment & Plan <Ana Rosa Ramirez - Last Filed: 01/14/20 06:39> (1) Encounter for care and examination after delivery: 24yo F POD #1 following section for breech presentation at 39.3 weeks. Doing well this morning and without concerns. Baby is doing well and is formula fed. - POD #1. - Feels well today. - Blood type A+, Rubella immune. - Will continue routine care. Encouraged ambulation today and pain medication PRN. SCDs when not ambulating. - Following d/c will have f/u in 6 weeks. Subjective <Ana Rosa James - Last Filed: 01/14/20 06:39> 24 yo F ; POD # 1 following section delivery at 39w3d; doing well this AM; no abdominal cramping/pain; recently had catheter removed, no passing gas or BM yet; tolerating blanca mya and crackers overnight. Afebrile and with normal vitals since delivery. 24 Hour I/Os: Intake: 1999 Output:1700 Review of Systems Constitutional: denies fever, chills, sweats, headache Respiratory: denies SOB, difficulty breathing Cardiac: denies CP, chest palpitations, chest pressure Breast: denies breast pain : denies dysuria Physical Exam <Ana Rosa Ramirez - Last Filed: 01/14/20 06:39> General: patient is alert and oriented, in NAD Cardiac: +S1/S2, no murmurs rubs or gallops Respiratory: lungs CTA b/l, anteriorly and posteriorly, no wheezes rales or rhonchi, no increased work of breathing, symmetric chest rise, no respiratory distress Abdomen: soft, NT, +bowel sounds Uterus: uterine fundus firm, palpable below the level of the umbilicus. Incision intact, non-tender, non-erythematous, no weeping from incision site Lower Extremities: no LE edema or swelling, no deep calf pain, Frankie's sign negative b/l Results & Data <Ana Rosa Mosquedaluis felipe - Last Filed: 01/14/20 06:39> Vital Signs (Past 12 Hours) Vital Signs Temp Pulse Resp BP Pulse Ox 01/14/20 04:35 36.7 C 76 20 109/63 01/14/20 03:25 16 98 01/14/20 02:40 17 97 01/14/20 01:38 17 98 01/14/20 00:40 17 98 01/13/20 23:45 36.6 C 73 20 104/63 96 01/13/20 22:55 17 97 01/13/20 22:00 17 98 01/13/20 21:00 18 98 01/13/20 20:00 18 97 01/13/20 19:50 37.1 C 70 18 109/64 97 01/13/20 19:15 18 97 Laboratory Results Laboratory Results - last 24 hr 01/13/20 01/13/20 01/14/20 07:08 07:08 06:12 WBC 8.56 7.75 RBC 4.04 L 3.56 L Hgb 13.1 11.4 L Hct 38.8 34.2 L MCV 96.0 96.1 MCH 32.4 32.0 MCHC 33.8 33.3 RDW Std Deviation 45.8 45.6 RDW Coeff of Heide 13.1 13.1 Plt Count 188 149 MPV 11.2 H 10.9 H Immature Gran % (Auto) 0.8 0.5 Neut % (Auto) 65.2 65.3 Lymph % (Auto) 22.8 21.0 Kay % (Auto) 9.9 11.6 Eos % (Auto) 1.1 1.5 Baso % (Auto) 0.2 0.1 Immature Gran # (Auto) 0.07 H 0.04 H Neut # (Auto) 5.58 5.05 Lymph # (Auto) 1.95 1.63 Kay # (Auto) 0.85 H 0.90 H Eos # (Auto) 0.09 0.12 Baso # (Auto) 0.02 0.01 Blood Type A Positive Antibody Screen NEGATIVE Crossmatch See Detail Medications Administered Current Medications Benzocaine (Dermoplast Pain Relieving [place]) 1 appln EXT UD PRN PRN Reason: use on skin as needed Stop: 02/12/20 11:53 Bisacodyl (Dulcolax) 5 mg PO 1999 ISAIAH Stop: 01/14/20 20:01 Cocaine HCl (Supercream 0.870%) 1 gm EXT UD PRN PRN Reason: hemmorrhoidal inflammation Stop: 01/27/20 11:53 Diphenhydramine HCl (Benadryl Capsule) 25 mg PO QID PRN PRN Reason: Itching Stop: 02/13/20 02:27 Ferrous Sulfate (Feosol) 325 mg PO DAILY@08 [facility] Stop: 02/13/20 07:59 Ibuprofen (Motrin) 600 mg PO Q4H PRN PRN Reason: Pain Stop: 02/13/20 02:27 Ondansetron HCl (Zofran) 4 mg IV Q4H PRN PRN Reason: Nausea And Vomiting Stop: 02/13/20 02:28 Oxycodone/Acetaminophen (Percocet 5mg/325mg) 1 - 2 tab PO Q4H PRN PRN Reason: Pain Stop: 01/28/20 02:27 Last Admin: 01/14/20 04:15 Dose: 1 tab Documented by: Prenat Multivit/Educational Therapy Teacher/Iron/Folic Ac ( Vitamin) 1 tab PO DAILY@08 [facility] Stop: 02/13/20 07:59 Simethicone (Mylicon) 80 mg PO DAILY@08,13,17,21 [facility] Stop: 02/12/20 12:59 Last Admin: 01/13/20 22:01 Dose: 80 mg Documented by: Zolpidem Tartrate (Ambien) 5 mg PO HS PRN PRN Reason: Sleep Stop: 02/13/20 02:27 <Yesenia Heaton MD, FACOG - Last Filed: 01/14/20 08:09> Co-Signing Physician Notes Resident Physician Supervision Note: I interviewed and examined the patient. Discussed with Dr. Ana Rosa Ramirez and agree with findings and plan as documented in the note. Any exceptions or clarifications are listed here: [None] Documented By: Yesenia Heaton MD, FACOG Resident Activity Tracking <Ana Rosa Ramirez DO - Last Filed: 01/14/20 06:39> Resident Involvement: Resident Care Provided Care Provided: OB Delivery
[2020-01-14 06:24] LABS: Basophils # (auto) 0.01 K/uL (0-0.2); Basophils % (auto) 0.1 %; Eosinophils # (auto) 0.12 K/uL (0-0.5); Eosinophils % (auto) 1.5 %; Hematocrit (blood only) 34.2 % (37-47); Hemoglobin 11.4 g/dL (12.0-16.0); Immature Granulocytes # (auto) 0.04 K/uL (0.00-0.02); Immature Granulocytes % (auto) 0.5 %; Lymphocytes # (auto) 1.63 K/uL (1.2-3.4); Mean Corpuscular Hgb Conc 33.3 g/dL (32-36); Mean Corpuscular Volume 96.1 fL (80-100); Mean Platelet Volume 10.9 fL (7.4-10.4); Monocytes % (auto) 11.6 %; Neutrophils # (auto) 5.05 K/uL (1.4-6.5); Neutrophils % (auto) 65.3 %; Platelet Count 149 K/uL (130-400); RDW Coefficient of Variation 13.1 % (11.5-14.5); RDW Standard Deviation 45.6 fL (36.4-46.3); Red Blood Count 3.56 M/uL (4.2-5.4); White Blood Count 7.75 K/uL (4.8-10.8)
--- NOTE | 2020-01-14 08:04 | Anesthesiology Progress Note ---
Date of Service January 14, 2020 Anesthesia Post Procedure Vital Signs Vital Signs: Temp Pulse Pulse Resp BP BP Pulse Ox 01/14/20 04:35 98.1 F 76 20 109/63 01/14/20 03:25 16 98 01/14/20 02:40 17 97 01/14/20 01:38 17 98 01/14/20 00:40 17 98 01/13/20 23:45 97.9 F 73 20 104/63 96 01/13/20 22:55 17 97 01/13/20 22:00 17 98 01/13/20 21:00 18 98 01/13/20 20:00 18 97 01/13/20 19:50 98.8 F 70 18 109/64 97 01/13/20 19:15 18 97 01/13/20 17:15 18 98 01/13/20 16:15 18 99 01/13/20 15:15 97.9 F 76 18 121/78 98 01/13/20 14:15 64 18 115/71 99 01/13/20 13:15 62 18 115/75 99 01/13/20 12:45 71 18 117/70 98 01/13/20 12:15 97.3 F L 54 L 18 117/74 98 01/13/20 12:08 71 111/57 L 01/13/20 12:03 60 99 01/13/20 12:01 53 L 112/65 01/13/20 11:58 57 L 99 01/13/20 11:53 68 99 01/13/20 11:51 61 18 108/64 98 01/13/20 11:48 63 99 01/13/20 11:43 61 99 01/13/20 11:38 67 100 01/13/20 11:33 64 99 01/13/20 11:31 51 L 110/62 01/13/20 11:30 97.3 F L 60 18 99 01/13/20 11:28 54 L 99 01/13/20 11:23 54 L 99 01/13/20 11:21 64 114/76 01/13/20 11:18 58 L 99 01/13/20 11:13 72 98 01/13/20 11:12 65 112/58 L 01/13/20 11:08 67 99 01/13/20 11:03 55 L 99 01/13/20 11:01 53 L 116/59 L 01/13/20 11:00 53 L 18 112/65 01/13/20 10:58 59 L 98 01/13/20 10:53 58 L 98 01/13/20 10:51 50 L 110/59 L 01/13/20 10:48 60 98 01/13/20 10:43 65 98 01/13/20 10:41 55 L 109/62 01/13/20 10:38 63 97 01/13/20 10:33 63 97 01/13/20 10:30 97.3 F L 63 16 106/58 L 97 01/13/20 10:28 64 97 01/13/20 10:23 78 98 01/13/20 10:22 61 108/64 01/13/20 10:18 66 98 01/13/20 10:13 60 98 01/13/20 10:11 51 L 99/50 L 01/13/20 10:10 59 L 18 99/50 L 97 01/13/20 10:08 60 97 01/13/20 10:03 62 97 01/13/20 10:01 62 107/69 01/13/20 10:00 58 L 18 107/69 99 01/13/20 09:58 59 L 98 01/13/20 09:53 73 99 01/13/20 09:51 65 104/58 L 01/13/20 09:50 63 18 104/58 L 99 01/13/20 09:48 61 98 01/13/20 09:43 72 95 01/13/20 09:42 67 94 01/13/20 09:40 72 18 98 01/13/20 09:38 62 98 01/13/20 09:33 68 98 01/13/20 09:32 97.3 F L 76 18 106/58 L 99 01/13/20 09:28 60 98 01/13/20 09:23 64 98 01/13/20 09:22 61 111/62 01/13/20 08:07 93 H 100 Pain Intensity Abdomen: Pain Intensity: 4 Notes Mental Status: alert / awake / arousable and participated in evaluation Nausea / Vomiting: adequately controlled Pain: adequately controlled Airway Patency, RR, SpO2: stable & adequate BP & HR: stable & adequate Hydration State: stable & adequate
[2020-01-14] MEDS: PRENATAL VITAMIN 1 TAB PO SCH (08:28)
[2020-01-14] MEDS: IBUPROFEN 600 MG TAB PO PRN ×4 (08:28→23:22)
[2020-01-14] MEDS: FERROUS SULFATE 325 MG TAB PO SCH (08:28)
[2020-01-14] MEDS: SIMETHICONE 80 MG CHEW PO SCH ×4 (08:28→20:36)
[2020-01-14] MEDS ORDERED: bisacodyL 5 MG TABEC PO SCH (20:00)
[2020-01-15] MEDS: OXYCODONE/ACETAMINOPHEN 5mg/325mg TAB PO PRN ×2 (05:06→09:33)
[2020-01-15] MEDS: IBUPROFEN 600 MG TAB PO PRN ×2 (05:06→09:34)
[2020-01-15 06:19] LABS: Hematocrit (blood only) 34.9 % (37-47); Hemoglobin 11.7 g/dL (12.0-16.0)
--- NOTE | 2020-01-15 07:03 | Obstetrical Progress Note ---
Date of Service <Ana Rosa Mosquedaluis felipe - Last Filed: 01/15/20 07:03> January 15, 2020 Assessment & Plan <Ana Rosa RamirezDO - Last Filed: 01/15/20 07:03> (1) Encounter for care and examination after delivery: 24yo F POD #2 following section for breech presentation at 39.3 weeks. Doing well this morning and without concerns. Baby is doing well and is formula fed. - Feels well today; will discharge this morning. No barriers to discharge for mom or baby. - Blood type A+, Rubella immune. - Will call for appointment in 6 weeks. - Will go over discharge instructions; answered all patient questions. Subjective <Ana Rosakieran Ramirez DO - Last Filed: 01/15/20 07:03> 24 yo female ; POD # 2 following section delivery at 39 weeks; d oing well this AM; no abdominal cramping/pain; voiding well, passing gas and has had a BM; tolerating meals overnight, able to ambulate some within the room. No shortness of breath, chest pain, dizziness, headache. Desires discharge home today. Review of Systems Constitutional: denies fever, chills, sweats, headache Respiratory: denies SOB, difficulty breathing Cardiac: denies CP, chest palpitations, chest pressure Breast: denies breast pain : denies dysuria Physical Exam <Ana Rosa RamirezDO - Last Filed: 01/15/20 07:03> General: patient is alert and oriented, in NAD Cardiac: +S1/S2, no murmurs rubs or gallops Respiratory: lungs CTA b/l, anteriorly and posteriorly, no wheezes rales or rhonchi, no increased work of breathing, symmetric chest rise, no respiratory distress Abdomen: soft, NT, +bowel sounds Uterus: uterine fundus firm, palpable below the level of the umbilicus. Incision intact, non-tender, non-erythematous, no weeping from incision site Lower Extremities: no LE edema or swelling, no deep calf pain, Frankie's sign negative b/l Results & Data <Ana Rosakieran Ramirez DO - Last Filed: 01/15/20 07:03> Vital Signs (Past 12 Hours) Vital Signs Temp Pulse Resp BP 01/14/20 23:25 36.4 C L 59 L 18 100/60 Laboratory Results Laboratory Results - last 24 hr 01/15/20 05:54 Hgb 11.7 L Hct 34.9 L Medications Administered Current Medications Benzocaine (Dermoplast Pain Relieving [place]) 1 appln EXT UD PRN PRN Reason: use on skin as needed Stop: 02/12/20 11:53 Cocaine HCl (Supercream 0.870%) 1 gm EXT UD PRN PRN Reason: hemmorrhoidal inflammation Stop: 01/27/20 11:53 Diphenhydramine HCl (Benadryl Capsule) 25 mg PO QID PRN PRN Reason: Itching Stop: 02/13/20 02:27 Ferrous Sulfate (Feosol) 325 mg PO DAILY@08 [facility] Stop: 02/13/20 07:59 Last Admin: 01/14/20 08:28 Dose: 325 mg Documented by: Ibuprofen (Motrin) 600 mg PO Q4H PRN PRN Reason: Pain Stop: 02/13/20 02:27 Last Admin: 01/15/20 05:06 Dose: 600 mg Documented by: Ondansetron HCl (Zofran) 4 mg IV Q4H PRN PRN Reason: Nausea And Vomiting Stop: 02/13/20 02:28 Oxycodone/Acetaminophen (Percocet 5mg/325mg) 1 - 2 tab PO Q4H PRN PRN Reason: Pain Stop: 01/28/20 02:27 Last Admin: 01/15/20 05:06 Dose: 1 tab Documented by: Prenat Multivit/Marketing Project Manager/Iron/Folic Ac ( Vitamin) 1 tab PO DAILY@08 [facility] Stop: 02/13/20 07:59 Last Admin: 01/14/20 08:28 Dose: 1 tab Documented by: Simethicone (Mylicon) 80 mg PO DAILY@08,13,17,21 [facility] Stop: 02/12/20 12:59 Last Admin: 01/14/20 20:36 Dose: 80 mg Documented by: Zolpidem Tartrate (Ambien) 5 mg PO HS PRN PRN Reason: Sleep Stop: 02/13/20 02:27 <Krupa Black MD - Last Filed: 01/15/20 07:07> Co-Signing Physician Notes I have reviewed the resident's note and examined the patient myself, and agree with the note above. Resident Activity Tracking <Ana Rosa Ramirez, DO - Last Filed: 01/15/20 07:03> Resident Involvement: Resident Care Provided Care Provided: OB Delivery
[2020-01-15] MEDS: PRENATAL VITAMIN 1 TAB PO SCH (07:52)
[2020-01-15] MEDS: SIMETHICONE 80 MG CHEW PO SCH (07:52)
[2020-01-15] MEDS: FERROUS SULFATE 325 MG TAB PO SCH (07:52)
--- NOTE | 2020-01-17 14:58 | Discharge Summary (DS) ---
PRINCIPAL DIAGNOSES: Intrauterine at 39 weeks with persistent breech presentation. PRINCIPAL PROCEDURE: Primary low transverse section. HISTORY: The patient is a 24-year-old G1, P0 white female who presented for primary section because of persistent breech presentation. An external version was attempted, but this was unsuccessful. She underwent the primary section without any complications. She had an uncomplicated postop course. She remained afebrile throughout her hospital stay. She was eating regular diet later on the day of her surgery. She was ambulating and voiding without difficulty on her 1st postop day. Hemoglobin was 13.1, hematocrit 38.8 on admission. First postop day, hemoglobin 11.4, hematocrit 34.2. Second postop day hemoglobin 11.7, hematocrit of 34.9. She was sent home in good condition with prescriptions for Percocet 1-2 tablets p.o. q. 4 hours p.r.n. pain, Motrin 600 mg p.o. q. 4-6 hours p.r.n. pain. She is to be seen in the office in 6 weeks for followup visit. She is to call for temperature of 101 degrees or higher, heavy vaginal bleeding, burning with urination, increased redness, drainage or pain in her incision, calf tenderness or any other concerns.
== END 2020-01-15 12:51 | disposition home or self-care (01) | DRG 788 ==
LOC: 4S1 07:00 → EDSTATUS 07:30 → 4S2 12:15